=== PATIENT | female | born 1935 | race Two or more races ===

== ENCOUNTER 2016-11-02 10:35 | Inpatient (IN) | payer MEDICARE, OTHER ==
[~2016-11-02] VITALS: Ht 147.3 cm; Wt 51.2 kg
[~2016-11-02 10:35] MED LIST: ATOR40TA68 PO; FURO40TA4 PO; METO50TA16 PO
[2016-11-02] MEDS ORDERED: HYDROmorphONE 1 MG/ML SYG IV STA (10:45)
[2016-11-02] MEDS ORDERED: ONDANSETRON 4 MG INJ IV STA ×2 (10:45→14:08)
[2016-11-02] MEDS ORDERED: SOD CHLORIDE 0.9% 1,000 ML IV STA (10:45)
[2016-11-02] MEDS ORDERED: ACETAMINOPHEN 325 MG TAB PO PRN (11:00)
[2016-11-02] MEDS ORDERED: ONDANSETRON 4 MG INJ IV PRN (11:00)
[2016-11-02 11:52] LABS: ADD SCAN DIFF NO
[2016-11-02 11:53] LABS: BASOPHILS % 0.3 % (0.0-2.0); EOSINOPHILS # 0.4 10^3/ul (0.0-0.5); EOSINOPHILS % 5.1 % (0.0-7.0); HEMATOCRIT 38.2 % (37.0-47.0); HEMOGLOBIN 12.5 g/dl (12.0-16.0); LYMPHOCYTES # 1.8 10^3/ul (0.8-2.9); MEAN CORPUSCULAR HEMOGLOBIN 31.5 pg (29.0-33.0); MEAN CORPUSCULAR HGB CONC 32.7 g/dl (32.0-37.0); MEAN CORPUSCULAR VOLUME 96.2 fl (82.0-101.0); MEAN PLATELET VOLUME 9.3 fl (7.4-10.4); MONOCYTE # 0.7 10^3/ul (0.3-0.9); MONOCYTES % 9.7 % (0.0-11.0); NEUTROPHIL # 4.6 10^3/ul (1.6-7.5); NEUTROPHILS % 60.5 % (39.0-77.0); PLATELET COUNT 270 10^3/UL (140-415); RED BLOOD COUNT 3.97 10^6/ul (4.20-5.40); RED CELL DISTRIBUTION WIDTH 12.9 % (11.5-14.5); WHITE BLOOD COUNT 7.7 10^3/ul (4.8-10.8)
[2016-11-02 12:01] LABS: ALBUMIN 3.9 g/dl (3.3-4.9)
[2016-11-02 12:02] LABS: CHLORIDE 99 mmol/L (97-110); POTASSIUM 4.3 mmol/L (3.5-5.1); SODIUM 136 mmol/L (135-144)
[2016-11-02 12:04] LABS: ANION GAP 12 (8-16); ASPARTATE AMINO TRANSFERASE 26 IU/L (15-46); BILIRUBIN,INDIRECT 0.4 mg/dl (0-1.1); BILIRUBIN,TOTAL 0.4 mg/dl (0.2-1.3); CARBON DIOXIDE 29 mmol/L (21-31); CREATININE 0.83 mg/dl (0.44-1.00)
[2016-11-02 12:05] LABS: ALANINE AMINOTRANSFERASE 27 IU/L (13-69); ALKALINE PHOSPHATASE 113 IU/L (42-121); BLOOD UREA NITROGEN 27 mg/dl (7-20); CALCIUM 9.4 mg/dl (8.4-10.2); GLUCOSE 122 mg/dl (70-220); TOTAL PROTEIN 6.9 g/dl (6.1-8.1)
[2016-11-02 12:20] LABS: TROPONIN-I < 0.010 ng/ml (0.00-0.12)
[2016-11-02 12:21] LABS: INR 0.97; PROTIME 12.9 Sec (12.2-14.2)
[2016-11-02 12:26] LABS: PARTIAL THROMBOPLASTIN TIME 29.7 Sec (25.0-35.0)
[2016-11-02] MEDS ORDERED: HYDROmorphONE 2 MG/ML SYG IV STA (12:37)
--- NOTE | 2016-11-02 12:42 | RADRPT ---
PROCEDURE: XR Chest. CLINICAL INDICATION: Shortness of breath. TECHNIQUE: Single frontal view. COMPARISON: 10/11/2016. FINDINGS: There is marked improvement in the aeration of the lungs. There is mild left basilar atelectasis. The lungs are otherwise clear. The heart size is normal. There is no pleural effusion. There is no pneumothorax. IMPRESSION: 1. Marked improvement in the aeration of the lungs with only mild left basilar atelectasis remainin g. 2. Otherwise normal chest x-ray. RPTAT: QQ .Flaco Denny MD, MD Date Time Electronically viewed and signed by .Flaco Denny MD, MD on 11/02/2016 11:58 .R/
--- NOTE | 2016-11-02 13:08 | RADRPT ---
PROCEDURE: CT Abdomen and Pelvis without contrast. CLINICAL INDICATION: Severe abdominal pain. Possible upper GI bleed. TECHNIQUE: Multiple contiguous axial CT images of the abdomen and pelvis were obtained without the administration of intravenous contrast. Coronal and sagittal reconstructions were also performed. CTDIvol (mGy): 6.62; Total Exam DLP (mGy-cm): 309.56. One or more of the following dose reduction techniques were utilized: - Automated exposure control. - Adjustment of the mA and/or kV according to patient size. - Use of iterative reconstruction technique. COMPARISON: CT lumbar spine 07/27/2016. CTA chest 07/27/2016. FINDINGS: Limited imaging of the lower thorax demonstrates cardiomegaly. The massive hiatal hernia seen on amy or examination is no longer present. Irregular soft tissue is seen within the surgical bed and may reflect postoperative change. This is limited evaluation given the lack of intravenous and oral cont rast. Mild atelectatic changes are seen within the lung bases. There is an irregular nodular densi ty measuring approximately 13 mm within the right middle lobe along the major fissure. This is not visible on prior examination and likely obscured by surrounding atelectatic change. The liver and spleen are homogeneous in density. Cholelithiasis is present. The pancreas and adren al glands are unremarkable. The kidneys are symmetric in size. There are no nephroureteral stones. There is no hydronephrosis o r abnormal perinephric inflammation. The abdominal aorta is normal in caliber. Atherosclerotic calcification is present. There is no per iaortic / retroperitoneal lymphadenopathy. The stomach is partially distended with gastric material. Mild nonspecific diffuse symmetric gastri c wall thickening is observed. There is no barbi gastric abnormality. The small intestines are unre markable. Diverticulosis of the distal colon is present. There is no ascites. The bladder, uterus and adnexa are unremarkable. There is no free pelvic fluid. There is no pelvic sidewall or inguinal lymphadenopathy. There is a fat-containing left inguinal hernia. There is a lo bular presacral mass containing macroscopic fat and strands of soft tissue attenuation. There are n o underlying bony changes of the sacrum. The sacral foramen are unremarkable. Spinal curvature with severe multilevel degenerative disk disease is present and grossly unchanged. Body wall soft tissues are unremarkable. IMPRESSION: The massive hiatal hernia seen on prior examination is no longer present which may be a result of agrawal rgical repair. Irregular soft tissue is seen within the surgical bed and may reflect postoperative c hange. However, this is limited in evaluation due to the lack of intravenous and oral contrast. Con rrts follow up and further characterization with contrast enhanced cross-sectional imaging. Irregular nodular density of the right middle lobe along the major fissure. Follow-up may be obtain ed in 3 months. Fat containing left inguinal hernia. Lobular circumscribed fat-containing presacral mass. There are no underlying bony changes / remodel ling of the sacrum. 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 Also included in the differential or mesenchymal and neurogenic tumors as well as extramedullary hematopoiesis. Imag ing follow-up may be obtained if there are no associated symptoms. Diverticulosis. No evidence of acute diverticulitis. Cholelithiasis. Spinal curvature with severe multilevel degenerative disk disease, unchanged. RPTAT: HLST .Zulma Garcia MD, MD Date Time Electronically viewed and signed by .Zulma Garcia MD, MD on 11/02/2016 13:08 .T/
--- NOTE | 2016-11-02 13:46 | ERA ---
ER Documentation Chief Complaint Date/Time DATE: 11/02/16 TIME: 13:44 Chief Complaint BIB BLS FOR EVAL OF ABD PAIN. FROM SNF. HPI Patient is an 81-year-old female with hypertension and back pain who presents with abdominal pain. She has left lower quadrant abdominal pain which he said is from a "hernia". She said the hernia that she has had for a long time but that over the past 2 days it has been "really bad". The pain comes and goes and is sharp in nature. Today there was blood on her toilet paper. She was brought in by ambulance. She had [place] at 830 this morning and then Dilaudid as well. Her primary doctors Dr. Hoffman. Dr. Vaughan did a recent hiatal hernia surgery. ROS All systems reviewed and are negative except as per history of present illness. Medications Home Meds Reported Medications Atorvastatin* (Atorvastatin*) 40 Mg Tablet, 40 MG PO QHS, #30 TAB 10/20/16 Metoprolol Succinate* (Toprol XL*) 50 Mg Tab.er.24h, 50 MG PO BID, #30 TAB 10/06/16 Atorvastatin* (Atorvastatin*) 40 Mg Tablet, 40 MG PO QHS, #30 TAB 07/27/16 Furosemide* (Furosemide*) 40 Mg Tablet, 40 MG PO DAILY, TAB 07/27/16 Allergies Allergies: Coded Allergies: No Known Allergy (Verified , 07/27/16) PMhx/Soc History of Surgery: Yes (RT EYE SX, JENNIFER FEET SX, RT KNEE SX,CERVICAL CA X2 SX, HERNIA SX, HEMORRHOID) Anesthesia Reaction: No Hx Neurological Disorder: No Hx Respiratory Disorders: No Hx Cardiac Disorders: Yes (HEART MURMUR ) Hx Psychiatric Problems: Yes (DEPRESSION) Hx Miscellaneous Medical Probl: Yes (HTN, dyslipidemia, chronic pain, T4-T5 compression fx in 2014) Hx Alcohol Use: No Hx Substance Use: No Hx Tobacco Use: No FmHx Family History: No diabetes Physical Exam Vitals Vital Signs Date Time Temp Pulse Resp B/P Pulse Ox O2 Delivery O2 Flow Rate FiO2 11/02/16 11:14 98.6 72 19 154/79 99 Physical Exam Const: Moderate distress secondary to pain Head: Atraumatic Eyes: Normal Conjunctiva ENT: Normal External Ears, Nose and Mouth. Neck: Full range of motion..~ No meningismus. Resp: Clear to auscultation bilaterally Cardio: Regular rate and rhythm, no murmurs Abd: Soft, diffuse tenderness to palpation with left lower quadrant hernia palpated without signs of skin color changes Skin: No petechiae or rashes Back: No midline or flank tenderness Ext: No cyanosis, or edema Neur: Awake and alert Psych: Normal Mood and Affect Result Diagram: 11/02/16 1130 11/02/16 1130 Results 24 hrs Laboratory Tests Test 11/02/16 11:30 White Blood Count 7.710^3/ul Red Blood Count 3.9710^6/ul Hemoglobin 12.5g/dl Hematocrit 38.2% Mean Corpuscular Volume 96.2fl Mean Corpuscular Hemoglobin 31.5pg Mean Corpuscular Hemoglobin Concent 32.7g/dl Red Cell Distribution Width 12.9% Platelet Count 19165^3/UL Mean Platelet Volume 9.3fl Neutrophils % 60.5% Lymphocytes % 24.0% Monocytes % 9.7% Eosinophils % 5.1% Basophils % 0.3% Nucleated Red Blood Cells % 0.0/100WBC Neutrophils # 4.610^3/ul Lymphocytes # 1.810^3/ul Monocytes # 0.710^3/ul Eosinophils # 0.410^3/ul Basophils # 0.010^3/ul Nucleated Red Blood Cells # 0.010^3/ul Prothrombin Time 12.9Sec Prothrombin Time Ratio 1.0 INR International Normalized Ratio 0.97 Activated Partial Thromboplast Time 29.7Sec Sodium Level 136mmol/L Potassium Level 4.3mmol/L Chloride Level 99mmol/L Carbon Dioxide Level 29mmol/L Anion Gap 12 Blood Urea Nitrogen 27mg/dl Creatinine 0.83mg/dl Glucose Level 122mg/dl Calcium Level 9.4mg/dl Total Bilirubin 0.4mg/dl Direct Bilirubin 0.00mg/dl Indirect Bilirubin 0.4mg/dl Aspartate Amino Transf (AST/SGOT) 26IU/L Alanine Aminotransferase (ALT/SGPT) 27IU/L Alkaline Phosphatase 113IU/L Troponin I < 0.010ng/ml Total Protein 6.9g/dl Albumin 3.9g/dl Globulin 3.00g/dl Albumin/Globulin Ratio 1.30 Current Medications Medications (Trade) Dose Ordered Sig/Krunal Route PRN Reason Start Time Stop Time Status Last Admin Dose Admin Sodium Chloride (NS) 1,000 ml @ 1,000 mls/hr Q1H STAT IV 11/02/16 10:45 11/02/16 11:44 DC Hydromorphone HCl (Dilaudid) 1 mg ONCE STAT IV 11/02/16 10:45 11/02/16 10:46 DC Ondansetron HCl (Zofran Inj) 4 mg ONCE STAT IV 11/02/16 10:45 11/02/16 10:46 DC Ondansetron HCl (Zofran Inj) 4 mg BRIDGE ORDER PRN IV NAUSEA AND/OR VOMITING 11/02/16 11:00 11/03/16 10:59 Acetaminophen (Tylenol Tab) 650 mg ER BRIDGE PRN PO MILD PAIN/FEVER 11/02/16 11:00 11/03/16 10:59 Hydromorphone HCl (Dilaudid) 2 mg ONCE STAT IV 11/02/16 12:37 11/02/16 12:38 DC Procedures/MDM PROCEDURE: CT Abdomen and Pelvis without contrast. CLINICAL INDICATION: Severe abdominal pain. Possible upper GI bleed. TECHNIQUE: Multiple contiguous axial CT images of the abdomen and pelvis were obtained without the administration of intravenous contrast. Coronal and sagittal reconstructions were also performed. CTDIvol (mGy): 6.62; Total Exam DLP (mGy-cm): 309.56. One or more of the following dose reduction techniques were utilized: - Automated exposure control. - Adjustment of the mA and/or kV according to patient size. - Use of iterative reconstruction technique. COMPARISON: CT lumbar spine 07/27/2016. CTA chest 07/27/2016. FINDINGS: Limited imaging of the lower thorax demonstrates cardiomegaly. The massive hiatal hernia seen on prior examination is no longer present. Irregular soft tissue is seen within the surgical bed and may reflect postoperative change. This is limited evaluation given the lack of intravenous and oral contrast. Mild atelectatic changes are seen within the lung bases. There is an irregular nodular density measuring approximately 13 mm within the right middle lobe along the major fissure. This is not visible on prior examination and likely obscured by surrounding atelectatic change. The liver and spleen are homogeneous in density. Cholelithiasis is present. The pancreas and adrenal glands are unremarkable. The kidneys are symmetric in size. There are no nephroureteral stones. There is no hydronephrosis or abnormal perinephric inflammation. The abdominal aorta is normal in caliber. Atherosclerotic calcification is present. There is no periaortic / retroperitoneal lymphadenopathy. The stomach is partially distended with gastric material. Mild nonspecific diffuse symmetric gastric wall thickening is observed. There is no barbi gastric abnormality. The small intestines are unremarkable. Diverticulosis of the distal colon is present. There is no ascites. The bladder, uterus and adnexa are unremarkable. There is no free pelvic fluid. There is no pelvic sidewall or inguinal lymphadenopathy. There is a fat- containing left inguinal hernia. There is a lobular presacral mass containing macroscopic fat and strands of soft tissue attenuation. There are no underlying bony changes of the sacrum. The sacral foramen are unremarkable. Spinal curvature with severe multilevel degenerative disk disease is present and grossly unchanged. Body wall soft tissues are unremarkable. IMPRESSION: The massive hiatal hernia seen on prior examination is no longer present which may be a result of surgical repair. Irregular soft tissue is seen within the surgical bed and may reflect postoperative change. However, this is limited in evaluation due to the lack of intravenous and oral contrast. Consider follow up and further characterization with contrast enhanced cross-sectional imaging. Irregular nodular density of the right middle lobe along the major fissure. Follow-up may be obtained in 3 months. Fat containing left inguinal hernia. Lobular circumscribed fat-containing presacral mass. There are no underlying bony changes / remodelling of the sacrum. 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 Also included in the differential or mesenchymal and neurogenic tumors as well as extramedullary hematopoiesis. Imaging follow- up may be obtained if there are no associated symptoms. Diverticulosis. No evidence of acute diverticulitis. Cholelithiasis. Spinal curvature with severe multilevel degenerative disk disease, unchanged. RPTAT: HLST .Zulma Garcia MD, Date Time Electronically viewed and signed by .Zulma Garcia MD, on 11/02/2016 13:08 Chest x-ray shows no pneumonia or pneumothorax per radiology. EKG read by me: Rate/Rhythm: Regular rate and rhythm at a rate of 65 Intervals: Normal Impression: No evidence of ischemia or arrhythmia Patient is an 81-year-old female with chronic pain who presents with abdominal pain. The patient has a hernia but no signs of obstruction on the CAT scan. It is a fat-containing hernia. The patient will need admission for Dr. Hoffman. The patient will be admitted to medical surgical bed. The patient has intractable pain which has failed outpatient treatment. The patient will be admitted to the care of Dr. Hoffman and I did speak with Dr. Vaughan for consultation. Departure Diagnosis: Primary Impression: Hernia Additional Impression: Abdominal pain Qualified Code: R10.9 - Abdominal pain, unspecified location Condition: MAURY Gamboa MD Nov 02, 2016 13:46
[2016-11-02] MEDS ORDERED: ACET-2047 PO (13:52)
[2016-11-02] MEDS ORDERED: ASPI-664 PO (13:53)
[2016-11-02] MEDS ORDERED: SPIR25TA PO (13:53)
[2016-11-02] MEDS ORDERED: CITA20TA11 PO (13:54)
[2016-11-02] MEDS ORDERED: CLON-379 PO (13:56)
[2016-11-02] MEDS ORDERED: DIAZ5TAB4 PO (13:57)
[2016-11-02] MEDS ORDERED: LIDO700A6 TP ×2 (13:58→14:01)
[2016-11-02] MEDS ORDERED: GABA-526 PO (13:58)
[2016-11-02] MEDS ORDERED: ALEN70TA30 PO (13:59)
[2016-11-02] MEDS ORDERED: HYDR4TAB18 PO (14:00)
[2016-11-02] MEDS ORDERED: LOSA25TA5 PO (14:02)
[2016-11-02 14:03] VITALS: TEMP 98.6
[2016-11-02] MEDS ORDERED: MULTI PO (14:03)
[2016-11-02] MEDS ORDERED: HYDR-906 PO ×2 (14:03→14:05)
[2016-11-02] MEDS ORDERED: LISI-313 PO (14:07)
[2016-11-02] MEDS ORDERED: SULF500T5 PO (14:08)
[2016-11-02] MEDS ORDERED: PROT946L PO (14:09)
[2016-11-02] MEDS ORDERED: POTA-57 PO (14:10)
--- NOTE | 2016-11-02 15:32 | HP ---
DATE OF ADMISSION: 11/02/2016 CHIEF COMPLAINT: Intractable abdominal pain not relieved by p.o. medication. HISTORY OF PRESENT ILLNESS: The patient is an 81-year-old female known to me from previous admissio n. The patient was admitted at the beginning of September of this year and underwent laparoscopic herni a repair and Atul fundoplication for big upper paraesophageal hernia. The patient also with chron ic low back pain with history of cervical and thoracic compression fracture. The patient is on Norc o and Dilaudid p.o. at home. The patient continued to have pain and also developed acute decompensa carolyn diastolic congestive heart failure; however, patient was discharged in stable condition and was recuperating at longterm facility. However, the patient was complaining of intractable left lower quadrant abdominal pain. The patient also had history of hernia. The patient stated that her pain was sharp in nature and was not relieved by p.o. medication. The patient had [place] and p.o. D ilaudid. The patient presented to the emergency room and underwent CT of the abdomen and pelvis. P atient underwent a CT scan of the abdomen which revealed a hernia, but no signs of obstruction. The patient was given IV Dilaudid with some improvement in symptoms. The patient will be admitted for further evaluation and management. PAST MEDICAL HISTORY: Positive for hypertension, dyslipidemia, chronic lower back pain, congestive heart failure. PAST SURGICAL HISTORY: Patient is status post surgery in the neck, status post colonoscopy and stat us post laparoscopic hernia repair and Taul fundoplication in [place] [address] Vaughan. ALLERGIES: NO KNOWN ALLERGIES. HOME MEDICATIONS: Include: 1. Atorvastatin. 2. Metoprolol. 3. Lasix. REVIEW OF SYSTEMS: A 12-point review of systems is negative unless what mentioned in the HPI. The patient denies any fever, denies chills, denies vomiting, diarrhea and denies chest pain, denies nathaniel rtness of breath. PHYSICAL ASSESSMENT: GENERAL: Well-developed, well-nourished fragile elderly female currently is awake, alert. VITAL SIGNS: Temperature is 98.6, pulse is 61, blood pressure is 100/67, respiratory rate 18, oxyge n saturation 99% on 3 liters nasal cannula. HEENT: Head is atraumatic, normocephalic. Pupils are equal, round, reactive to light and accommoda tion. Oral mucosa is pink and moist. NECK: Supple. There is no cervical lymphadenopathy, no thyromegaly. CHEST: Lungs clear bilaterally. There is no rhonchi, wheezes, rales noted. CARDIOVASCULAR: Normal S1, S2. No murmurs, gallops, clicks, rubs noted. ABDOMEN: Soft. Patient has left lower quadrant tenderness and diffuse tenderness on palpation. Th e patient's left lower quadrant hernia. Bowel sounds present. There is no guarding, no rebound ten derness. EXTREMITIES: No edema, clubbing, cyanosis. Pulses equal bilaterally 2+. SKIN: There is no rash, petechiae noted. NEUROLOGIC: Patient is awake, alert and oriented x4. No focal deficits noted. Motor strength 5/5 in all extremities. LABORATORY DATA: On admission, CBC: White blood cells 7.7, hemoglobin 12.5, hematocrit 38.2, plate lets 270. Chemistry: Sodium 136, potassium 4.3, chloride 99, carbon dioxide 29, anion gap 12, BUN is 27, creatinine 0.83, glucose 122. AST is 26, ALT is 27, alkaline phosphate is 115, troponin less than 0.01. ASSESSMENT AND PLAN: 1. Intractable abdominal pain. We are going to admit patient. Continue Dilaudid p.r.n. for pain an d Zofran p.r.n. for nausea. Dr. Vaughan will be following patient in general surgery consultation. 2. Diastolic congestive heart failure. Continue patient on p.o. Lasix, monitor electrolytes. 3. Hypertension. Continue metoprolol. 4. We will continue Protonix for peptic ulcer disease prophylaxis and Lovenox for deep venous throm bosis prophylaxis. Further recommendations based on clinical course. Plan of care discussed with Javan Hoffman. Dictated By: ALEXIS VAZQUEZ SUPERVISOR [employer] for VALENTÍN HOFFMAN MD SR/NTS Conf#: [id number] DID#: [id number]
[2016-11-02 16:18] VITALS: BP 111/54; RESP 18
[2016-11-02] MEDS ORDERED: HYDROmorphONE 4 MG/ML SYG IV PRN (16:30)
[2016-11-02] MEDS: D5W-0.45 NACL + KCL 20 MEQ 1,000 ML IV SCH (16:50)
[2016-11-02] MEDS: HYDROmorphONE 1 MG/ML SYG IV PRN ×3 (16:51→23:18)
--- NOTE | 2016-11-02 18:42 | CONS ---
DATE OF ADMISSION: 11/02/2016 DATE OF CONSULTATION: 11/02/2016 REASON FOR CONSULTATION: Abdominal pain. HISTORY OF PRESENT ILLNESS: This is an 81-year-old female who had a recent laparoscopic paraesophag eal hernia repair with Paxton fundoplication. She presents with acute abdominal pain. She has a ch ronic history of chronic back pain with treatment of high-dose opioids. Imaging today on CAT scan s hows a fat-containing left inguinal hernia that appears to be incarcerated. Additionally, there jerome ears to be a presacral mass representing a retroperitoneal myelolipoma. LABORATORY DATA: White blood cell count 7.7, hemoglobin 12.5, hematocrit is 38.2, platelets of 270. Chemistries: Sodium is 136, potassium is 4.3, chloride is 99, carbon dioxide is 29, BUN is 27, cr eatinine 0.8, glucose is 122, calcium is 9.4. Total bilirubin is 0.4, AST and ALT are 26 and 27 res pectively, alkaline phosphatase of 113. PAST MEDICAL HISTORY: Hypertension, dyslipidemia, chronic low back pain with high-dose opioids, con gestive heart failure. PAST SURGICAL HISTORY: Neck surgery and laparoscopic paraesophageal hernia repair with Paxton fundo plication. ALLERGIES: NO KNOWN DRUG ALLERGIES. HOME MEDICATIONS: 1. Atorvastatin. 2. Metoprolol. 3. Lasix. REVIEW OF SYSTEMS: A 12-point review of systems negative unless otherwise mentioned in the HPI. PHYSICAL EXAMINATION: VITAL SIGNS: Temperature is 98.6, pulse is 64, respiratory rate is 18, blood pressure is 111/54, pu lse oximetry is 95. GENERAL: Well-developed, appropriately aged elderly female. HEENT: Atraumatic, normocephalic head. PERRLA. NECK: Supple, midline. CHEST: Clear to auscultation. CARDIOVASCULAR: Normal S1, S2. ABDOMEN: Soft. Focal left lower quadrant tenderness with a left inguinal bulge. EXTREMITIES: No edema. ASSESSMENT AND PLAN: An 81-year-old female with recent complicated laparoscopic paraesophageal nelson ia repair with now an incarcerated left inguinal hernia. This was reduced at bedside with constant soft manual compression. Plan is to keep her n.p.o. after midnight and will plan on operative repai r tomorrow or the next day. Dictated By: JONAS LEE MD SB/NTS Conf#: [id number] [facility]#: [id number]
[2016-11-02 20:00] VITALS: BP 107/57; PULSE 62; RESP 19; Ht 147.3 cm; Wt 51.2 kg
[2016-11-02 20:54] VITALS: BP 107/57; RESP 19
[2016-11-02] MEDS: ATORVASTATIN 40 MG TAB PO SCH (23:19)
[2016-11-02] MEDS: METOPROLOL (XL) 50 MG TAB PO SCH (23:20)
[2016-11-03] VITALS (13 sets, daily range): BP systolic 123–163; BP diastolic 64–76; PULSE 72–94; RESP 16–26
[2016-11-03] MEDS: HYDROmorphONE 1 MG/ML SYG IV PRN ×4 (04:26→21:20)
[2016-11-03 05:19] LABS: ADD SCAN DIFF NO
[2016-11-03 05:24] LABS: BASOPHILS % 0.3 % (0.0-2.0); EOSINOPHILS # 0.4 10^3/ul (0.0-0.5); EOSINOPHILS % 5.9 % (0.0-7.0); HEMATOCRIT 33.9 % (37.0-47.0); HEMOGLOBIN 10.8 g/dl (12.0-16.0); LYMPHOCYTES # 1.2 10^3/ul (0.8-2.9); LYMPHOCYTES % 18.9 % (15.0-51.0); MEAN CORPUSCULAR HEMOGLOBIN 31.5 pg (29.0-33.0); MEAN CORPUSCULAR HGB CONC 31.9 g/dl (32.0-37.0); MEAN CORPUSCULAR VOLUME 98.8 fl (82.0-101.0); MEAN PLATELET VOLUME 9.6 fl (7.4-10.4); MONOCYTE # 0.8 10^3/ul (0.3-0.9); MONOCYTES % 12.2 % (0.0-11.0); NEUTROPHIL # 4.1 10^3/ul (1.6-7.5); NEUTROPHILS % 62.2 % (39.0-77.0); PLATELET COUNT 216 10^3/UL (140-415); RED BLOOD COUNT 3.43 10^6/ul (4.20-5.40); RED CELL DISTRIBUTION WIDTH 13.1 % (11.5-14.5); WHITE BLOOD COUNT 6.6 10^3/ul (4.8-10.8)
[2016-11-03 06:04] LABS: POTASSIUM 4.2 mmol/L (3.5-5.1)
[2016-11-03 06:07] LABS: CREATININE 0.79 mg/dl (0.44-1.00)
[2016-11-03 06:08] LABS: CALCIUM 8.7 mg/dl (8.4-10.2)
[2016-11-03] MEDS: FUROSEMIDE 20 MG TAB PO SCH (08:27)
[2016-11-03] MEDS: METOPROLOL (XL) 50 MG TAB PO SCH ×2 (08:27→21:18)
[2016-11-03] MEDS ORDERED: FUROSEMIDE 40 MG TAB PO SCH (09:00)
[2016-11-03] MEDS ORDERED: BUPIVACAINE 0.25% (MPF) 30 ML INJ ONE (09:36)
[2016-11-03] MEDS ORDERED: POLYMYXIN/BACITRACIN 1L IRRIG ONE (09:36)
[2016-11-03] MEDS ORDERED: ONDANSETRON 4 MG INJ IV PRN (11:30)
[2016-11-03] MEDS ORDERED: MIDAZOLAM 1 MG/ML 2 ML INJ IV PRN (11:30)
[2016-11-03] MEDS ORDERED: hydrALAzine 20 MG INJ IV PRN (11:30)
[2016-11-03] MEDS ORDERED: MEPERIDINE 25 MG INJ IV PRN (11:30)
[2016-11-03] MEDS ORDERED: morphine (1 MG/ML) 10ML SYRINGE IV PRN ×2 (11:30)
[2016-11-03] MEDS ORDERED: LABETALOL HCL 20MG INJ IV PRN (11:30)
[2016-11-03] MEDS ORDERED: DIPHENHYDRAMINE 50 MG INJ IV PRN (11:30)
[2016-11-03] MEDS ORDERED: EPHEDrine SULFATE 50 MG/5 ML SYG IV PRN (11:30)
[2016-11-03] MEDS ORDERED: METOCLOPRAMIDE 10 MG INJ IV PRN (11:30)
[2016-11-03] MEDS ORDERED: FENTAnyl 50 MCG/ML VIAL IV PRN ×2 (11:30)
[2016-11-03] MEDS ORDERED: SUCCINYLCHOLINE CHLORIDE 100 MG/5 ML SYG IV ONE (11:35)
[2016-11-03] MEDS ORDERED: MEPERIDINE 100 MG INJ ONE (11:35)
[2016-11-03] MEDS ORDERED: PROPOFOL 20 ML ONE (11:35)
[2016-11-03] MEDS ORDERED: ROCURONIUM 50 MG INJ ONE (11:35)
[2016-11-03] MEDS ORDERED: LIDOCAINE 2% (SDV) 5 ML INJ ONE (11:35)
[2016-11-03] MEDS ORDERED: GLYCOPYRROLATE 0.4 MG INJ ONE (11:35)
[2016-11-03] MEDS ORDERED: NEOSTIGMINE 3 MG/3 ML SYRINGE ONE (11:35)
[2016-11-03] MEDS ORDERED: CEFAZOLIN 1 GM INJ ONE (11:46)
[2016-11-03] MEDS: D5W-0.45 NACL + KCL 20 MEQ 1,000 ML IV SCH (11:48)
[2016-11-03] MEDS ORDERED: ONDANSETRON 4 MG INJ ONE (12:02)
[2016-11-03] MEDS ORDERED: METOCLOPRAMIDE 10 MG INJ ONE (12:02)
[2016-11-03] MEDS ORDERED: EPHEDrine SULFATE 50 MG/5 ML SYG ONE (12:11)
--- NOTE | 2016-11-03 12:16 | PN ---
Date/Time of Note Date/Time of Note DATE: 11/03/16 TIME: 12:11 Assessment/Plan VTE Prophylaxis VTE Prophylaxis Intervention: SCD's Lines/Catheters IV Catheter Type (from Nrs): Peripheral IV Urinary Cath still in place: No Assessment/Plan Chief Complaint/Hosp Course ASSESSMENT AND PLAN: - Incarcerated left inguinal hernia. Patient is taking to OR for hernia repair. Dr. Vaughan is following patient in general surgery consultation. - Intractable abdominal pain in patient with chronic back pain. Continue Dilaudid p.r.n. for pain and Zofran p.r.n. for nausea. Dr. Orellana is asked to see patient in pain management consultation. - Diastolic congestive heart failure. Continue Lasix, monitor electrolytes. - Hypertension. Continue metoprolol. Continue Protonix for peptic ulcer disease prophylaxis and Lovenox for deep venous thrombosis prophylaxis. Further recommendations based on clinical course. Plan of care discussed with Dr. Hoffman. Problems: Subjective 24 Hr Interval Summary Free Text/Dictation Patient is currently in OR for incarcerated hernia repair, no acute events reported prior to surgery. Exam/Review of Systems Vital Signs Vitals Vital Signs Date Time Temp Pulse Resp B/P Pulse Ox O2 Delivery O2 Flow Rate FiO2 11/03/16 10:32 Nasal Cannula 2.0 11/03/16 08:05 98.4 79 19 134/70 94 Intake and Output 11/02/16 11/02/16 11/03/16 15:00 23:00 07:00 Intake Total 10 ml 840 ml Balance 10 ml 840 ml Results Result Diagram: 11/03/16 0445 11/03/16 0445 Results 24 hrs Laboratory Tests Test 11/03/16 04:45 White Blood Count 6.6 Red Blood Count 3.43 L Hemoglobin 10.8 L Hematocrit 33.9 L Mean Corpuscular Volume 98.8 Mean Corpuscular Hemoglobin 31.5 Mean Corpuscular Hemoglobin Concent 31.9 L Red Cell Distribution Width 13.1 Platelet Count 216 Mean Platelet Volume 9.6 Neutrophils % 62.2 Lymphocytes % 18.9 Monocytes % 12.2 H Eosinophils % 5.9 Basophils % 0.3 Nucleated Red Blood Cells % 0.0 Neutrophils # 4.1 Lymphocytes # 1.2 Monocytes # 0.8 Eosinophils # 0.4 Basophils # 0.0 Nucleated Red Blood Cells # 0.0 Sodium Level 135 Potassium Level 4.2 Chloride Level 103 Carbon Dioxide Level 28 Anion Gap 8 Blood Urea Nitrogen 22 H Creatinine 0.79 Glucose Level 131 Calcium Level 8.7 Medications Medications Current Medications Atorvastatin Calcium (Lipitor) 40 mg QHS PO Last administered on 11/02/16 23:19 ; Admin Dose 40 MG; Start 11/02/16 at 21:00 Metoprolol Succinate (Toprol Xl) 50 mg BID PO Last administered on 11/02/16 23: 20; Admin Dose 50 MG; Start 11/02/16 at 21:00 Ondansetron HCl 4 mg 4 mg Q4H PRN IV NAUSEA AND/OR VOMITING; Start 11/02/16 at 16:30 Potassium Chloride/Dextrose/ Sod Cl (D5-1/2ns + KCl 20 Meq) 1,000 ml @ 50 mls/ hr Q20H IV Last administered on 11/02/16 16:50; Admin Dose 50 MLS/HR; Start 11/02/16 at 16:30 Hydromorphone HCl (Dilaudid) 1 mg Q3H PRN IV PAIN Last administered on 08:27; Admin Dose 1 MG; Start 11/02/16 at 19:30 Furosemide (Lasix) 20 mg DAILY PO ; Start 11/03/16 at 09:00 ALEXIS VAZQUEZ Nov 03, 2016 12:16
[2016-11-03] MEDS ORDERED: morphine 2 MG INJ IV PRN (12:30)
[2016-11-03] MEDS ORDERED: HYDROCODONE/APAP (10/325) TAB PO PRN (12:30)
[2016-11-03] MEDS ORDERED: HYDROmorphONE 1 MG/ML SYG IV PRN ×2 (12:30→15:16)
--- NOTE | 2016-11-03 12:56 | OPR ---
DATE OF OPERATION: 11/03/2016 INDICATION: This is an 81-year-old female who presented to the ER with acutely incarcerated direct left inguinal hernia. She requests surgical repair. Risks, alternatives, benefits, and personnel w ere discussed with the patient. The patient expressed understanding and consents to the operation. PREOPERATIVE DIAGNOSIS: Incarcerated left inguinal hernia. POSTOPERATIVE DIAGNOSIS: Incarcerated left inguinal hernia. OPERATION: Open incarcerated left inguinal hernia repair with medium sized Ultrapro hernia system m es. SURGEON: Melissa Vaughan MD SPECIMEN: None. COMPLICATIONS: None. ANESTHESIA: General. DESCRIPTION OF PROCEDURE: The patient was taken to the OR and prepped and draped in the usual ster ile fashion. Surgical timeout was performed. IV antibiotics were given. Left inguinal oblique inc ision was made with a 10 blade. Dissection cautery was carried down to the external oblique fascia which was opened up with a 15 blade. This incision was extended medial inferiorly and lateral super iorly with Metzenbaum scissors. The round ligament was divided. Direct hernia was identified and r educed. This area was bolstered with the disk portion of the Ultrapro hernia system mesh which was secured in place a running 0 Prolene from the pubic tubercle along the shelving edge of the inguinal ligament and superiorly to the internal oblique with interrupted 3-0 Vicryl. [place] mesh was secure d in similar fashion with a running 0 Prolene from the pubic tubercle along the shelving edge of the inguinal ligament and superiorly to the internal oblique with interrupted 3-0 Vicryl. External obl ique fascia was closed with a running 3-0 Vicryl. Perry's was closed with interrupted 3-0 Vicryl. Skin was closed using skin garett. Local anesthesia was injected. Dry dressings were applied. Dictated By: MELISSA BUTLER/ROSA Conf#: [id number] DID#: [id number]
[2016-11-03 13:07] LABS: ADD SCAN DIFF NO
[2016-11-03 13:11] LABS: BASOPHILS % 0.2 % (0.0-2.0); EOSINOPHILS # 0.2 10^3/ul (0.0-0.5); EOSINOPHILS % 2.2 % (0.0-7.0); HEMATOCRIT 36.9 % (37.0-47.0); HEMOGLOBIN 11.3 g/dl (12.0-16.0); LYMPHOCYTES # 1.7 10^3/ul (0.8-2.9); MEAN CORPUSCULAR HEMOGLOBIN 30.5 pg (29.0-33.0); MEAN CORPUSCULAR HGB CONC 30.6 g/dl (32.0-37.0); MEAN CORPUSCULAR VOLUME 99.7 fl (82.0-101.0); MEAN PLATELET VOLUME 9.2 fl (7.4-10.4); MONOCYTE # 0.9 10^3/ul (0.3-0.9); MONOCYTES % 10.8 % (0.0-11.0); NEUTROPHIL # 5.3 10^3/ul (1.6-7.5); NEUTROPHILS % 65.4 % (39.0-77.0); PLATELET COUNT 215 10^3/UL (140-415); RED CELL DISTRIBUTION WIDTH 13.1 % (11.5-14.5); WHITE BLOOD COUNT 8.2 10^3/ul (4.8-10.8)
[2016-11-03 13:20] LABS: ALBUMIN 3.4 g/dl (3.3-4.9)
[2016-11-03 13:21] LABS: POTASSIUM 3.6 mmol/L (3.5-5.1)
[2016-11-03 13:23] LABS: ALBUMIN/GLOBULIN RATIO 1.17; BILIRUBIN,INDIRECT 0.3 mg/dl (0-1.1); BILIRUBIN,TOTAL 0.3 mg/dl (0.2-1.3); CREATININE 0.81 mg/dl (0.44-1.00); TOTAL PROTEIN 6.3 g/dl (6.1-8.1)
[2016-11-03 13:24] LABS: CALCIUM 8.9 mg/dl (8.4-10.2)
[2016-11-03] MEDS: LACTATED RINGER'S 1,000 ML IV SCH (14:15)
--- NOTE | 2016-11-03 14:56 | PN ---
DATE: 11/03/2016 PAIN MEDICINE CONSULTATION This is a pleasant 81-year-old female who is status post open incarcerated left hernia repair with m edium sized Ultrapro Hernia System Mesh today, 11/03/2016. The patient presented to the emergency r oom at [facility] with intractable abdominal discomfort. Most of this information is taken from the patient's medical record, she is postop at this point, but apparently developed acute onse t of abdominal discomfort located in the left lower quadrant. She has a past medical history of "he rnia." I do not have more details than that, but apparently pain was unremitting, sharp and was not alleviated by dose pain medications, including [place] and Dilaudid she has been taking at home for a very prolonged period of time prior to this hospitalization. She came to the emergency room with u nalleviated intractable pain once again, only located in the left lower quadrant. She had no system ic symptoms associated with it. There is no past medical history of opioid abuse. The character of her pain was numbing, not sharp and no radiations. 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 She apparently has been on that medication for a long period of time, d osing as [place] 10/325 every 6 hours as needed, 1 tablet, Dilaudid 4 mg 1 tablet twice a day history . Apparently she has been on this for a prolonged period of time prior to this hospitalization. MEDICATIONS: Please refer to reconciliation sheets. ALLERGIES: NO KNOWN DRUG ALLERGIES. MAJOR MEDICAL PROBLEMS IN THE PAST: Taken from medical records including a history of chronic low b ack pain, congestive heart failure, hypertension, dyslipidemia. SOCIAL HISTORY: Nonsmoker, nondrinker. FAMILY HISTORY: Noncontributory towards this consultation. REVIEW OF SYSTEMS: A 12-point review of systems is unremarkable except which is as per history of p resent illness. PHYSICAL EXAMINATION: GENERAL: Postoperatively, in her bed, she is a well-nourished, well-developed female, somewhat somn olent on examination. VITAL SIGNS: Blood pressure 137/64, pulse is 74 and regular, respirations are 26, temperature 98.7 degrees, 97% saturation on 2 liters FIO2. HEENT: She is normocephalic and atraumatic. Anicteric, acyanotic on examination. Somewhat ashen-a ppearing female. CHEST: Shows bilateral clear breath sounds throughout both lung hannah. COR: S1, S2, without S3, S4, murmur, gallop, rub. Normal rate, normal rhythm. Bilateral carotids are brisk without bruit. ABDOMEN: Grossly benign, scaphoid. No organomegaly grossly on examination. NEUROLOGICAL: She is oriented x3, somewhat slow to answer questions, somewhat somnolent at this elias e. Motor, sensory findings grossly within normal limits. LABORATORY DATA: White blood cell count of 8.2, hemoglobin 11.3, hematocrit 36.9, platelet count of 215,000. Chemistry: Serum sodium 138, potassium 3.6, chloride 100, bicarbonate 27, BUN of 19, cre atinine 0.81, blood sugar 128. ASSESSMENT AND PLAN: This is an 81-year-old female who is TOLERANT TO OPIOIDS, status post 08/02/19 17 this 08/02/2016 open incarcerated left herniorrhaphy, inguinal hernia repair with medium sized Ul trapro hernia system mesh who appears to be stable postoperatively at this time, not taking oral yet . She is tolerant to opioids, having taking 2 short acting opioids for a very prolonged period of t gregory, according to she and her daughter. The character of the pain location of the pain, and medicat ions that alleviate her pain are listed in the history of present illness. At this time, I will the morphine and some of the dosages of hydromorphone and just keep her on Dilaudid 1 mg every 4 hours p.r.n. pain. She does not appear to be in extreme discomfort at this time, once again not moaning, not groaning on examination. For now, we will withhold any oral pain medications, so we will discon tinue [place]. I do suspect she was having some discomfort tomorrow when and if she begins to ambulat e. I will adjust her dosages of her pain control medications at that time. Hopefully, with using p rimarily just other forms of pain management other than the use of opioids, although this lady is to lerant to pain medications and she will need something to control her discomfort. Dictated By: LUMA ARROYO MD, LP/ROSA Conf#: [id number] [facility]#: [id number]
[2016-11-03] MEDS: ONDANSETRON 4 MG INJ IV PRN (15:25)
[2016-11-03] MEDS: CEFAZOLIN 2 GM/50 ML (PMX) 50 ML IVPB SCH (20:28)
[2016-11-03] MEDS: ATORVASTATIN 40 MG TAB PO SCH (21:18)
[2016-11-04] MEDS: HYDROmorphONE 1 MG/ML SYG IV PRN ×7 (00:47→20:59)
[2016-11-04] MEDS: DIAZEPAM 5 MG TAB PO PRN ×2 (01:51→20:58)
[2016-11-04] MEDS: CEFAZOLIN 2 GM/50 ML (PMX) 50 ML IVPB SCH ×2 (05:11→11:26)
[2016-11-04] MEDS: LACTATED RINGER'S 1,000 ML IV SCH ×3 (05:11→17:43)
[2016-11-04] MEDS: ONDANSETRON 4 MG INJ IV PRN ×2 (05:31→11:21)
[2016-11-04 05:44] LABS: ADD SCAN DIFF NO
[2016-11-04 05:54] LABS: BASOPHILS % 0.3 % (0.0-2.0); EOSINOPHILS # 0.1 10^3/ul (0.0-0.5); EOSINOPHILS % 1.3 % (0.0-7.0); HEMATOCRIT 32.5 % (37.0-47.0); HEMOGLOBIN 10.6 g/dl (12.0-16.0); LYMPHOCYTES # 1.3 10^3/ul (0.8-2.9); LYMPHOCYTES % 16.4 % (15.0-51.0); MEAN CORPUSCULAR HEMOGLOBIN 31.7 pg (29.0-33.0); MEAN CORPUSCULAR HGB CONC 32.6 g/dl (32.0-37.0); MEAN CORPUSCULAR VOLUME 97.3 fl (82.0-101.0); MEAN PLATELET VOLUME 9.4 fl (7.4-10.4); MONOCYTE # 0.7 10^3/ul (0.3-0.9); MONOCYTES % 9.7 % (0.0-11.0); NEUTROPHIL # 5.5 10^3/ul (1.6-7.5); NEUTROPHILS % 71.9 % (39.0-77.0); PLATELET COUNT 208 10^3/UL (140-415); RED BLOOD COUNT 3.34 10^6/ul (4.20-5.40); RED CELL DISTRIBUTION WIDTH 12.8 % (11.5-14.5); WHITE BLOOD COUNT 7.6 10^3/ul (4.8-10.8)
[2016-11-04 07:16] LABS: POTASSIUM 3.4 mmol/L (3.5-5.1)
[2016-11-04 07:19] LABS: CREATININE 0.67 mg/dl (0.44-1.00)
[2016-11-04 07:20] LABS: CALCIUM 8.6 mg/dl (8.4-10.2)
[2016-11-04] MEDS: FUROSEMIDE 20 MG TAB PO SCH (08:07)
[2016-11-04] MEDS: METOPROLOL (XL) 50 MG TAB PO SCH ×2 (08:07→20:59)
[2016-11-04 08:27] VITALS: BP 143/66; RESP 20
--- NOTE | 2016-11-04 13:23 | PN ---
DATE: 11/04/2016 PAIN MANAGEMENT PROGRESS NOTE SUBJECTIVE: She is doing better today. States she has discomfort, but she is not in extremis at al l. Pain location is still in the left lower quadrant. Denies nausea, vomiting associated with the current pain medications including IV Dilaudid 1 mg q. 6 hours p.r.n. It seems to be controlling he r pain very well. She has no other systemic symptoms at this time. No nausea, vomiting, fevers, ch ills, dizziness, diplopia, disorientation. She is taking p.o. liquids at this time. Pain was 9/10 before, it is 3/10 now. OBJECTIVE: VITAL SIGNS: Blood pressure 143/66, pulse of 83 and regular, respirations of 20, temperature of 98. 8 degrees, 91% saturation on 2 liters. HEENT: She is normocephalic and atraumatic. Anicteric, acyanotic on examination. CHEST: Shows bilateral clear breath sounds throughout both lung hannah. NEUROLOGICAL: She is oriented x3. Cranial nerves II through XII are grossly intact. Motor and sen zonia findings grossly within normal limits. LABORATORY DATA: White blood cell count of 7.6, hemoglobin 10.6, hematocrit 32.5, MCV 97.3, platele t count of 208,000. Chemistry: Serum sodium 137, potassium 3.4, chloride 100, bicarbonate 26, BUN 14, creatinine 0.67, blood sugar 148. ASSESSMENT AND PLAN: The patient is status post open incarcerated left inguinal hernia repair with medium-sized Ultrapro hernia system mesh. Postop pain is controlled at this time. History of chron ic pain prior to hospitalization, currently controlled with current regimen. When she is taking p.o . well, I will switch her back to her outpatient pain control medication. Dictated By: LUMA ARROYO MD, LP/ROSA Conf#: [id number] DID#: [id number]
[2016-11-04] MEDS ORDERED: POTASSIUM CHLORIDE (SR) 20 MEQ TAB PO STA (17:28)
--- NOTE | 2016-11-04 17:32 | PN ---
Date/Time of Note Date/Time of Note DATE: 11/04/16 TIME: 17:31 Assessment/Plan VTE Prophylaxis VTE Prophylaxis Intervention: other Lines/Catheters IV Catheter Type (from Nrs): Peripheral IV Urinary Cath still in place: No Assessment/Plan Assessment/Plan - Incarcerated left inguinal hernia. Patient is taking to OR for hernia repair. Dr. Vaughan is following patient in general surgery consultation. - Intractable abdominal pain in patient with chronic back pain. Continue Dilaudid p.r.n. for pain and Zofran p.r.n. for nausea. Dr. Orellana is asked to see patient in pain management consultation. - Diastolic congestive heart failure. Continue Lasix, monitor electrolytes. - Hypertension. Continue metoprolol. Continue Protonix for peptic ulcer disease prophylaxis and Lovenox for deep venous thrombosis prophylaxis. Further recommendations based on clinical course. Plan of care discussed with Dr. Hoffman. Exam/Review of Systems Vital Signs Vitals Vital Signs Date Time Temp Pulse Resp B/P Pulse Ox O2 Delivery O2 Flow Rate FiO2 11/04/16 08:27 98.8 83 20 143/66 91 11/03/16 14:00 Nasal Cannula 2.0 Intake and Output 11/03/16 11/03/16 11/04/16 15:00 23:00 07:00 Intake Total 450 ml 1390 ml 1030 ml Output Total 5 ml Balance 445 ml 1390 ml 1030 ml Exam Psych: nl mood/affect Eyes: EOMI ENMT: nl external ears & nose Neck: non-tender Respiratory: clear to auscultation Cardiovascular: nl pulses Gastrointestinal: non-tender, soft Musculoskeletal: nl extremities to inspection Results Result Diagram: 11/04/16 0523 11/04/16 0523 Results 24 hrs Laboratory Tests Test 11/04/16 05:23 White Blood Count 7.6 Red Blood Count 3.34 L Hemoglobin 10.6 L Hematocrit 32.5 L Mean Corpuscular Volume 97.3 Mean Corpuscular Hemoglobin 31.7 Mean Corpuscular Hemoglobin Concent 32.6 Red Cell Distribution Width 12.8 Platelet Count 208 Mean Platelet Volume 9.4 Neutrophils % 71.9 Lymphocytes % 16.4 Monocytes % 9.7 Eosinophils % 1.3 Basophils % 0.3 Nucleated Red Blood Cells % 0.0 Neutrophils # 5.5 Lymphocytes # 1.3 Monocytes # 0.7 Eosinophils # 0.1 Basophils # 0.0 Nucleated Red Blood Cells # 0.0 Sodium Level 137 Potassium Level 3.4 L Chloride Level 100 Carbon Dioxide Level 26 Anion Gap 14 Blood Urea Nitrogen 14 Creatinine 0.67 Glucose Level 148 Calcium Level 8.6 Medications Medications Current Medications Atorvastatin Calcium (Lipitor) 40 mg QHS PO Last administered on 11/03/16 21:18 ; Admin Dose 40 MG; Start 11/02/16 at 21:00 Metoprolol Succinate (Toprol Xl) 50 mg BID PO Last administered on 11/04/16 08: 07; Admin Dose 50 MG; Start 11/02/16 at 21:00 Ondansetron HCl (Zofran Inj) 4 mg Q4H PRN IV NAUSEA AND/OR VOMITING Last administered on 11/04/16 11:21; Admin Dose 4 MG; Start 11/02/16 at 16:30 Furosemide 20 mg 20 mg DAILY PO Last administered on 11/04/16 08:07; Admin Dose 20 MG; Start 11/03/16 at 09:00 Cefazolin Sodium/ Dextrose 50 ml @ 100 mls/hr Q8H IVPB Last administered on 11:26; Admin Dose 100 MLS/HR; Start 11/03/16 at 20:00; Stop 11/04/16 at 19: 59 Lactated Ringer's (Lr) 1,000 ml @ 100 mls/hr Q10H IV Last administered on 05:11; Admin Dose 100 MLS/HR; Start 11/03/16 at 12:22 Hydromorphone HCl (Dilaudid) 1 mg Q3H PRN IV PAIN Last administered on 14:54; Admin Dose 1 MG; Start 11/03/16 at 18:16 Diazepam (Valium) 5 mg QHS PRN PO Insomnia Last administered on 11/04/16 01:51 ; Admin Dose 5 MG; Start 11/03/16 at 21:00 GISELLE CAST Nov 04, 2016 17:32
[2016-11-04] MEDS: ATORVASTATIN 40 MG TAB PO SCH (20:58)
[2016-11-05] MEDS: HYDROmorphONE 1 MG/ML SYG IV PRN ×8 (04:51→23:12)
[2016-11-05] MEDS: LACTATED RINGER'S 1,000 ML IV SCH ×2 (04:51→14:02)
[2016-11-05 05:50] LABS: ADD SCAN DIFF NO
[2016-11-05 05:54] LABS: BASOPHILS % 0.3 % (0.0-2.0); EOSINOPHILS # 0.6 10^3/ul (0.0-0.5); EOSINOPHILS % 8.1 % (0.0-7.0); HEMATOCRIT 32.2 % (37.0-47.0); HEMOGLOBIN 10.5 g/dl (12.0-16.0); LYMPHOCYTES # 1.6 10^3/ul (0.8-2.9); LYMPHOCYTES % 19.9 % (15.0-51.0); MEAN CORPUSCULAR HEMOGLOBIN 31.3 pg (29.0-33.0); MEAN CORPUSCULAR HGB CONC 32.6 g/dl (32.0-37.0); MEAN CORPUSCULAR VOLUME 96.1 fl (82.0-101.0); MEAN PLATELET VOLUME 9.3 fl (7.4-10.4); MONOCYTE # 0.9 10^3/ul (0.3-0.9); MONOCYTES % 10.8 % (0.0-11.0); NEUTROPHIL # 4.8 10^3/ul (1.6-7.5); NEUTROPHILS % 60.5 % (39.0-77.0); PLATELET COUNT 204 10^3/UL (140-415); RED BLOOD COUNT 3.35 10^6/ul (4.20-5.40); RED CELL DISTRIBUTION WIDTH 12.8 % (11.5-14.5); WHITE BLOOD COUNT 7.9 10^3/ul (4.8-10.8)
[2016-11-05 06:05] LABS: POTASSIUM 3.2 mmol/L (3.5-5.1)
[2016-11-05 06:08] LABS: CREATININE 0.61 mg/dl (0.44-1.00)
[2016-11-05 06:09] LABS: CALCIUM 8.6 mg/dl (8.4-10.2)
[2016-11-05] MEDS: ONDANSETRON 4 MG INJ IV PRN (07:51)
[2016-11-05] MEDS: METOPROLOL (XL) 50 MG TAB PO SCH ×2 (08:00→20:14)
[2016-11-05] MEDS: FUROSEMIDE 20 MG TAB PO SCH (08:00)
[2016-11-05 08:23] VITALS: BP 175/85; RESP 18
--- NOTE | 2016-11-05 18:06 | PN ---
Date/Time of Note Date/Time of Note DATE: 11/05/16 TIME: 18:05 Assessment/Plan VTE Prophylaxis VTE Prophylaxis Intervention: SCD's Lines/Catheters IV Catheter Type (from Nrs): Peripheral IV Urinary Cath still in place: No Assessment/Plan Chief Complaint/Hosp Course ASSESSMENT AND PLAN: - Incarcerated left inguinal hernia. S/p hernia repair. Dr. Vaughan is following patient in general surgery consultation. - Intractable abdominal pain in patient with chronic back pain. Continue Dilaudid p.r.n. for pain and Zofran p.r.n. for nausea. Dr. Orellana is following in pain management consultation. - Diastolic congestive heart failure. Continue Lasix, monitor electrolytes. - Hypertension. Continue metoprolol. Continue Protonix for peptic ulcer disease prophylaxis and Lovenox for deep venous thrombosis prophylaxis. Further recommendations based on clinical course. Plan of care discussed with Dr. Hoffman. Problems: Subjective 24 Hr Interval Summary Free Text/Dictation Patient tolerates diet well, continues to have poor appetite, pain is better controlled. Exam/Review of Systems Vital Signs Vitals Vital Signs Date Time Temp Pulse Resp B/P Pulse Ox O2 Delivery O2 Flow Rate FiO2 11/05/16 08:23 98.3 76 18 175/85 94 11/04/16 20:00 Nasal Cannula 2.0 Intake and Output 11/04/16 11/04/16 11/05/16 15:00 23:00 07:00 Intake Total 50 ml 1800 ml 1600 ml Balance 50 ml 1800 ml 1600 ml Exam PHYSICAL ASSESSMENT: GENERAL: Well-developed, well-nourished fragile elderly female currently is awake, alert. HEENT: Head is atraumatic, normocephalic. Pupils are equal, round, reactive to light and accommodation. Oral mucosa is pink and moist. NECK: Supple. There is no cervical lymphadenopathy, no thyromegaly. CHEST: Lungs clear bilaterally. There is no rhonchi, wheezes, rales noted. CARDIOVASCULAR: Normal S1, S2. No murmurs, gallops, clicks, rubs noted. ABDOMEN: Soft. Status post surgery EXTREMITIES: No edema, clubbing, cyanosis. Pulses equal bilaterally 2+. SKIN: There is no rash, petechiae noted. NEUROLOGIC: Patient is awake, alert and oriented x4. No focal deficits noted. Motor strength 5/5 in all extremities. Results Result Diagram: 11/05/16 0525 11/05/16 0425 Results 24 hrs Laboratory Tests Test 11/05/16 04:25 11/05/16 05:25 Sodium Level 138 Potassium Level 3.2 L Chloride Level 99 Carbon Dioxide Level 27 Anion Gap 15 Blood Urea Nitrogen 10 Creatinine 0.61 Glucose Level 119 Calcium Level 8.6 White Blood Count 7.9 Red Blood Count 3.35 L Hemoglobin 10.5 L Hematocrit 32.2 L Mean Corpuscular Volume 96.1 Mean Corpuscular Hemoglobin 31.3 Mean Corpuscular Hemoglobin Concent 32.6 Red Cell Distribution Width 12.8 Platelet Count 204 Mean Platelet Volume 9.3 Neutrophils % 60.5 Lymphocytes % 19.9 Monocytes % 10.8 Eosinophils % 8.1 H Basophils % 0.3 Nucleated Red Blood Cells % 0.0 Neutrophils # 4.8 Lymphocytes # 1.6 Monocytes # 0.9 Eosinophils # 0.6 H Basophils # 0.0 Nucleated Red Blood Cells # 0.0 Medications Medications Current Medications Atorvastatin Calcium (Lipitor) 40 mg QHS PO Last administered on 11/04/16 20:58 ; Admin Dose 40 MG; Start 11/02/16 at 21:00 Metoprolol Succinate (Toprol Xl) 50 mg BID PO Last administered on 11/05/16 08: 00; Admin Dose 50 MG; Start 11/02/16 at 21:00 Ondansetron HCl (Zofran Inj) 4 mg Q4H PRN IV NAUSEA AND/OR VOMITING Last administered on 11/05/16 07:51; Admin Dose 4 MG; Start 11/02/16 at 16:30 Furosemide 20 mg 20 mg DAILY PO Last administered on 11/05/16 08:00; Admin Dose 20 MG; Start 11/03/16 at 09:00 Lactated Ringer's (Lr) 1,000 ml @ 100 mls/hr Q10H IV Last administered on 14:02; Admin Dose 100 MLS/HR; Start 11/03/16 at 12:22 Hydromorphone HCl (Dilaudid) 1 mg Q3H PRN IV PAIN Last administered on 17:09; Admin Dose 1 MG; Start 11/03/16 at 18:16 Diazepam (Valium) 5 mg QHS PRN PO Insomnia Last administered on 4/6/17at 20:58 ; Admin Dose 5 MG; Start 11/03/16 at 21:00 ALEXIS VAZQUEZ Nov 05, 2016 18:06
[2016-11-05] MEDS ORDERED: POTASSIUM CHLORIDE 30 MEQ in DEXTROSE 5% 250 ML IVPB ONE (18:30)
[2016-11-05 19:56] VITALS: BP 192/91; RESP 16
[2016-11-05] MEDS: ATORVASTATIN 40 MG TAB PO SCH (20:13)
[2016-11-05 20:45] VITALS: BP 167/72; PULSE 72; RESP 16
[2016-11-05 21:45] VITALS: BP 158/74; PULSE 70; RESP 18
[2016-11-05] MEDS: DIAZEPAM 5 MG TAB PO PRN (21:51)
[2016-11-06] VITALS (7 sets, daily range): BP systolic 147–197; BP diastolic 67–92; PULSE 70–76; RESP 18–20
[2016-11-06] MEDS: HYDROmorphONE 1 MG/ML SYG IV PRN ×3 (05:51→11:45)
[2016-11-06 06:10] LABS: ADD SCAN DIFF NO
[2016-11-06 06:39] LABS: CALCIUM 8.2 mg/dl (8.4-10.2); CREATININE 0.54 mg/dl (0.44-1.00); POTASSIUM 3.7 mmol/L (3.5-5.1)
[2016-11-06 07:21] LABS: BASOPHILS % 0.2 % (0.0-2.0); EOSINOPHILS # 0.6 10^3/ul (0.0-0.5); HEMATOCRIT 33.3 % (37.0-47.0); HEMOGLOBIN 10.9 g/dl (12.0-16.0); LYMPHOCYTES # 1.3 10^3/ul (0.8-2.9); LYMPHOCYTES % 15.7 % (15.0-51.0); MEAN CORPUSCULAR HEMOGLOBIN 31.3 pg (29.0-33.0); MEAN CORPUSCULAR HGB CONC 32.7 g/dl (32.0-37.0); MEAN CORPUSCULAR VOLUME 95.7 fl (82.0-101.0); MEAN PLATELET VOLUME 9.4 fl (7.4-10.4); MONOCYTE # 0.8 10^3/ul (0.3-0.9); MONOCYTES % 9.5 % (0.0-11.0); NEUTROPHIL # 5.7 10^3/ul (1.6-7.5); NEUTROPHILS % 67.1 % (39.0-77.0); PLATELET COUNT 215 10^3/UL (140-415); RED BLOOD COUNT 3.48 10^6/ul (4.20-5.40); RED CELL DISTRIBUTION WIDTH 12.9 % (11.5-14.5); WHITE BLOOD COUNT 8.5 10^3/ul (4.8-10.8)
[2016-11-06] MEDS: METOPROLOL (XL) 50 MG TAB PO SCH ×2 (08:15→21:17)
[2016-11-06] MEDS: FUROSEMIDE 20 MG TAB PO SCH (08:16)
[2016-11-06] MEDS ORDERED: ACETAMINOPHEN 325 MG TAB PO PRN (12:00)
[2016-11-06] MEDS ORDERED: DIAZEPAM 5 MG TAB PO PRN (12:00)
[2016-11-06] MEDS ORDERED: HYDROCODONE/APAP (5/325) TAB NGT PRN (12:00)
[2016-11-06] MEDS ORDERED: LOSARTAN 25 MG TAB PO SCH (12:00)
[2016-11-06] MEDS: SENNA/DOCUSATE NA (8.6MG/50MG) TAB PO SCH ×2 (12:00→21:07)
[2016-11-06] MEDS: MULTIVITAMINS THERAPEUTIC TAB PO SCH (12:21)
[2016-11-06] MEDS: LOSARTAN 25 MG TAB PO SCH (12:22)
[2016-11-06] MEDS: HYDROCODONE/APAP (5/325) TAB NGT PRN (12:23)
--- NOTE | 2016-11-06 12:25 | PN ---
DATE: 11/06/2016 SUBJECTIVE: The patient continues to have significant postoperative pain. 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 Patient denies any chest pain, breathing comfortably, no reported fever or chills. Patient tole rating diet well. No reported orthopnea, no reported leg edema. PHYSICAL EXAMINATION: GENERAL: The patient is conscious, awake, alert, fairly oriented. VITAL SIGNS: Temperature 98.7, pulse 70, respirations 18, blood pressure 174/84, O2 saturation 95% on 2 liters nasal cannula. HENT: Conjunctivae and lids are normal. Oropharynx clear. NECK: Supple. No mass, no thyromegaly. CHEST: Fairly clear. No use of accessory muscles. CARDIOVASCULAR: S1, S2 normal. No murmur, gallop, or rub. ABDOMEN: Soft, nondistended. Dressing intact on the left lower abdomen. No bleeding. EXTREMITIES: No leg edema. Pedal pulses palpable. SKIN: Without acute rash or ulcer. NEUROLOGIC: The patient is awake, alert, oriented with no gross focal deficit. LABORATORY DATA: Done this morning, WBC 8.5, hemoglobin 10.9, platelets 215. Sodium 133, potassium 3.7, BUN 8, creatinine 0.5, glucose 133. IMPRESSION: 1. Incarcerated left inguinal hernia status post open repair. 2. Recent history of paraesophageal hernia repair. Patient's Dilaudid dose will be increased to 1. 5 mg q.3h. p.r.n. I will also add oral [place] for breakthrough pain. 3. Hypertension. Will add Cozaar. 4. Hyponatremia. The patient's chest x-ray does not have any congestive heart failure and therefor e we will hold off on Lasix and will optimize blood pressure control. We will also add clonidine fo r p.r.n. basis. 5. Anxiety and depression. We will add Valium on p.r.n. basis and will resume Celexa. 6. Chronic lower back pain. Will add Neurontin which was started at [facility]escent home by pain [facility] physician, Dr. Jackson. Meanwhile, the patient is also being seen by Dr. Odell for pain management during her recent stay at [facility]. Plan of care discussed with the nursing staff. Dictated By: VALENTÍN HODGE/ROSA Conf#: [id number] DID#: [id number]
[2016-11-06] MEDS: HYDROmorphONE 2 MG/ML SYG IV PRN ×3 (14:41→21:04)
[2016-11-06] MEDS: ATORVASTATIN 40 MG TAB PO SCH (21:07)
[2016-11-06] MEDS: GABAPENTIN 300 MG CAP PO SCH (21:07)
[2016-11-06] MEDS: DIAZEPAM 5 MG TAB PO PRN (22:10)
[2016-11-07] MEDS: HYDROmorphONE 2 MG/ML SYG IV PRN ×6 (05:33→23:10)
[2016-11-07 05:36] VITALS: BP 185/83; RESP 16
[2016-11-07] MEDS: ALENDRONATE 70 MG TAB PO SCH (07:30)
[2016-11-07 08:12] VITALS: BP 141/73; RESP 18
[2016-11-07 08:13] VITALS: BP_SYST 107; BP_SYST 141; BP_DIAS 57; BP_DIAS 73; RESP 18; RESP 19
[2016-11-07] MEDS: LOSARTAN 25 MG TAB PO SCH ×2 (09:00→10:22)
[2016-11-07] MEDS: GABAPENTIN 300 MG CAP PO SCH ×3 (09:00→20:02)
[2016-11-07] MEDS: METOPROLOL (XL) 50 MG TAB PO SCH ×3 (09:00→20:03)
[2016-11-07] MEDS: ASPIRIN (EC) 81 MG TAB PO SCH ×2 (09:00→10:21)
[2016-11-07] MEDS: SENNA/DOCUSATE NA (8.6MG/50MG) TAB PO SCH ×2 (09:00→20:02)
[2016-11-07] MEDS: MULTIVITAMINS THERAPEUTIC TAB PO SCH (09:00)
[2016-11-07] MEDS: CITALOPRAM 20 MG TAB PO SCH ×2 (09:00→10:21)
[2016-11-07] MEDS: HYDROCODONE/APAP (5/325) TAB NGT PRN ×2 (11:21→15:14)
[2016-11-07 13:30] VITALS: BP 122/60; PULSE 68; RESP 16
--- NOTE | 2016-11-07 19:04 | PN ---
Date/Time of Note Date/Time of Note DATE: 11/07/16 TIME: 19:03 Assessment/Plan VTE Prophylaxis VTE Prophylaxis Intervention: other Lines/Catheters IV [facility] Type (from [facility]): [place] Urinary Cath still in place: No Assessment/Plan Assessment/Plan 1. Incarcerated left inguinal hernia status post open repair. 2. Recent history of paraesophageal hernia repair. Patient's Dilaudid dose will be increased to 1.5 mg q.3h. p.r.n. I will also add oral [place] for breakthrough pain. 3. Hypertension. Will add Cozaar. 4. Hyponatremia. The patient's chest x-ray does not have any congestive heart failure and therefore we will hold off on Lasix and will optimize blood pressure control. We will also add clonidine for p.r.n. basis. 5. Anxiety and depression. We will add Valium on p.r.n. basis and will resume Celexa. 6. Chronic lower back pain. Will add Neurontin which was started at convalescent home by pain management physician, Dr. Jackson. Meanwhile, the patient is also being seen by Dr. Odell for pain management during her recent stay at [facility]. 7. Pain / edema left hand - XRAY hand - Venous doppler Plan of care discussed with the nursing staff. Subjective 24 Hr Interval Summary Eyes: no complaints ENT: no complaints Respiratory: no complaints Cardiovascular: no complaints Gastrointestinal: no complaints Genitourinary: no complaints Musculoskeletal: no complaints Skin: other Neurologic: no complaints Exam/Review of Systems Vital Signs Vitals Vital Signs Date Time Temp Pulse Resp B/P Pulse Ox O2 Delivery O2 Flow Rate FiO2 11/07/16 13:30 68 16 122/60 96 Nasal Cannula 2.0 11/07/16 08:13 98.6 Intake and Output 11/06/16 11/06/16 11/07/16 15:00 23:00 07:00 Intake Total 700 ml 360 ml Balance 700 ml 360 ml Exam Constitutional: alert, oriented Psych: nl mood/affect Eyes: EOMI, nl conjunctiva ENMT: nl external ears & nose Respiratory: clear to auscultation Cardiovascular: nl pulses Gastrointestinal: nl liver, spleen, soft Musculoskeletal: swelling Extremities: normal pulses Neurological: nl mental status, nl speech Skin: nl turgor Lymph: nontender Results Result Diagram: 11/06/1614 11/06/16513 Medications Medications Current Medications Atorvastatin Calcium (Lipitor) 40 mg QHS PO Last administered on 11/06/16 21:07 ; Admin Dose 40 MG; Start 11/02/16 at 21:00 Metoprolol Succinate (Toprol Xl) 50 mg BID PO Last administered on 11/07/16 10: 22; Admin Dose 50 MG; Start 11/02/16 at 21:00 Ondansetron HCl (Zofran Inj) 4 mg Q4H PRN IV NAUSEA AND/OR VOMITING Last administered on 11/05/16 07:51; Admin Dose 4 MG; Start 11/02/16 at 16:30 Diazepam (Valium) 5 mg QHS PRN PO Insomnia Last administered on 11/06/16 22:10 ; Admin Dose 5 MG; Start 11/03/16 at 21:00 Senna/Docusate Sodium (Senokot-S) 2 tab BID PO Last administered on 11/06/16 21 :07; Admin Dose 2 TAB; Start 11/06/16 at 12:00 Acetaminophen (Tylenol Tab) 650 mg Q6H PRN PO PAIN LEVEL 1-3 OR FEVER; Start at 12:00 Alendronate Sodium (Fosamax) 70 mg Sidhu@0730 PO ; Start 11/07/16 at 07:30 Aspirin (Halfprin) 81 mg DAILY PO Last administered on 11/07/16 10:21; Admin Dose 81 MG; Start 11/07/16 at 09:00 Citalopram Hydrobromide (Celexa) 20 mg DAILY PO Last administered on 11/07/16 10:21; Admin Dose 20 MG; Start 11/07/16 at 09:00 Diazepam (Valium) 5 mg Q6H PRN PO ANXIETY; Start 11/06/16 at 12:00 Gabapentin (Neurontin) 600 mg BID PO Last administered on 11/07/16 10:21; Admin Dose 600 MG; Start 11/06/16 at 21:00 Losartan Potassium (Cozaar) 25 mg DAILY PO Last administered on 11/07/16 10:22 ; Admin Dose 25 MG; Start 11/06/16 at 12:00 Multivitamins Therapeutic (Theragran) 1 tab DAILY PO Last administered on 12:21; Admin Dose 1 TAB; Start 11/06/16 at 12:00 Acetaminophen/ Hydrocodone Bitart ([place] (5/325)) 1 q 4 prn for pain 3-5 2 ... Q4H PRN NGT PAIN LEVEL 4-6 Last administered on 11/07/16 15:14; Admin Dose 2 TAB; Start 11/06/16 at 12:00 Clonidine (Catapres) 0.1 mg Q4H PRN GTB SBP >170 Last administered on 11/07/16 05:36; Admin Dose 0.1 MG; Start 11/06/16 at 12:00 Hydromorphone HCl (Dilaudid) 1.5 mg Q3H PRN IV PAIN Last administered on 16:24; Admin Dose 1.5 MG; Start 11/06/16 at 12:16 GISELLE CAST Nov 07, 2016 19:04
[2016-11-07] MEDS: ATORVASTATIN 40 MG TAB PO SCH (20:02)
[2016-11-07 21:01] VITALS: BP 142/71; RESP 20
[2016-11-08] MEDS: DIAZEPAM 5 MG TAB PO PRN ×2 (00:44→22:21)
[2016-11-08] MEDS: HYDROCODONE/APAP (5/325) TAB NGT PRN ×4 (00:46→19:50)
--- NOTE | 2016-11-08 01:01 | RADRPT ---
PROCEDURE: Ultrasound examination of the left upper extremity veins with Doppler. CLINICAL INDICATION: Pain and swelling. TECHNIQUE: Multiple sonographic images of the left upper extremity veins were performed with tijerina scale and color Doppler. COMPARISON: None. FINDINGS: The left internal jugular, subclavian, axillary, brachial, basilic, radial and ulnar veins demonstra te normal color flow, waveforms and compression. There is no evidence of deep venous thrombosis. Co lia-flow is difficult to obtain within the left brachial vein. IMPRESSION: No evidence of deep venous thrombosis within the left upper extremity veins. .Greg Do MD, MD Date Time Electronically viewed and signed by .Greg Do MD, MD on 11/08/2016 01:00 .T/
[2016-11-08] MEDS: HYDROmorphONE 2 MG/ML SYG IV PRN ×6 (05:22→20:51)
[2016-11-08 07:59] VITALS: BP 138/67; RESP 17
[2016-11-08] MEDS: ASPIRIN (EC) 81 MG TAB PO SCH (08:47)
[2016-11-08] MEDS: METOPROLOL (XL) 50 MG TAB PO SCH ×2 (08:48→20:45)
[2016-11-08] MEDS: MULTIVITAMINS THERAPEUTIC TAB PO SCH (08:48)
[2016-11-08] MEDS: LOSARTAN 25 MG TAB PO SCH (08:48)
[2016-11-08] MEDS: GABAPENTIN 300 MG CAP PO SCH ×2 (08:48→20:44)
[2016-11-08] MEDS: CITALOPRAM 20 MG TAB PO SCH (08:48)
[2016-11-08] MEDS: SENNA/DOCUSATE NA (8.6MG/50MG) TAB PO SCH ×2 (08:48→20:44)
--- NOTE | 2016-11-08 09:09 | RADRPT ---
PROCEDURE: XR Left Hand CLINICAL INDICATION: Pain swelling TECHNIQUE: AP, oblique, and lateral radiographs were submitted. COMPARISON: None FINDINGS: Osseous structures: A 6 mm ossification is seen to project lateral to the greater multangular which likely represents an avulsion fragment. The osseous elements otherwise appear intact. Joint spaces: There is narrowing of the distal interphalangeal joints particularly involving the ind ex and middle fingers and there is narrowing of the first metacarpal carpal joint space and the inte rphalangeal joint space of the thumb with mild spurring compatible with osteoarthritic change. Soft tissues: appear unremarkable. IMPRESSION: 1. A 6 mm osseous fragment projects lateral to the greater multangular suspicious for an avulsion w ith uncertain site of origin but likely off view the greater multangular are base of the first metac arpal. 2. Osteoarthritic changes as described. Physician Karin Date Time Electronically viewed and signed by Physician Karin on 11/08/2016 09:08 /
--- NOTE | 2016-11-08 09:11 | RADRPT ---
PROCEDURE: XR Left Wrist CLINICAL INDICATION: Pain, swelling TECHNIQUE: AP, lateral, and oblique views were submitted. COMPARISON: None FINDINGS: Osseous structures: A 6 mm ossification projects lateral to the greater multangular compatible with an avulsion. The remaining osseous elements appear intact. Joint spaces: There is narrowing of the first metacarpal carpal joint space with mild degenerative s purring. The remaining joint spaces appear unremarkable. Soft tissues: appear unremarkable. IMPRESSION: 1. A 6 mm osseous fragment projects lateral to the greater multangular which probably represents an avulsion fragment. 2. Mild degenerative change seen about the first metacarpal carpal joint space. Physician Karin Date Time Electronically viewed and signed by Physician Karin on 11/08/2016 09:10 /
[2016-11-08] MEDS ORDERED: BETAMET NA PHOS/AC(6 MG/ML) 5ML INJ INJ ONE (19:00)
[2016-11-08] MEDS ORDERED: BUPIVACAINE 0.5%/EPI (SDV) 30 ML INJ INJ ONE (19:00)
[2016-11-08 19:56] VITALS: BP 152/75; RESP 83
--- NOTE | 2016-11-08 20:43 | PN ---
Date/Time of Note Date/Time of Note DATE: 11/08/16 TIME: 20:40 Assessment/Plan Lines/Catheters IV Catheter Type (from Nrsg): Saline Lock Urinary Cath still in place: No Assessment/Plan Assessment/Plan 1. Incarcerated left inguinal hernia status post open repair. 2. Recent history of paraesophageal hernia repair. Patient's Dilaudid dose will be increased to 1.5 mg q.3h. p.r.n. I will also add oral [place] for breakthrough pain. 3. Hypertension. Will add Cozaar. 4. Hyponatremia. The patient's chest x-ray does not have any congestive heart failure and therefore we will hold off on Lasix and will optimize blood pressure control. We will also add clonidine for p.r.n. basis. 5. Anxiety and depression. We will add Valium on p.r.n. basis and will resume Celexa. 6. Chronic lower back pain. Will add Neurontin which was started at [facility] by pain management physician, Dr. Jackson. Meanwhile, the patient is also being seen by Dr. Odell for pain management during her recent stay at [facility]. 7. Pain / edema left hand - XRAY hand- an avulsion fragment. - per dr christine in ortho- plan for steriod injections. - Venous doppler -negattive for DVT Plan of care discussed with the nursing staff. Exam/Review of Systems Vital Signs Vitals Vital Signs Date Time Temp Pulse Resp B/P Pulse Ox O2 Delivery O2 Flow Rate FiO2 11/08/16 09:00 Nasal Cannula 2.0 11/08/16 07:59 98.5 67 17 138/67 94 Intake and Output 11/07/16 11/07/16 11/08/16 15:00 23:00 07:00 Intake Total 960 ml 350 ml Balance 960 ml 350 ml Exam Constitutional: alert, well developed Psych: nl mood/affect Head: atraumatic Eyes: EOMI ENMT: nl external ears & nose Neck: non-tender Cardiovascular: nl pulses Gastrointestinal: non-tender, soft Genitourinary - Female: nl external genitalia Extremities: normal pulses, other (RIGHT HAND- edema/eryhthema) Neurological: nl mental status, nl speech Lymph: nontender Results Result Diagram: 11/06/1651311/06/16513 Medications Medications Current Medications Atorvastatin Calcium (Lipitor) 40 mg QHS PO Last administered on 11/07/16 20:02 ; Admin Dose 40 MG; Start 11/02/16 at 21:00 Metoprolol Succinate (Toprol Xl) 50 mg BID PO Last administered on 11/08/16 08 :48; Admin Dose 50 MG; Start 11/02/16 at 21:00 Ondansetron HCl (Zofran Inj) 4 mg Q4H PRN IV NAUSEA AND/OR VOMITING Last administered on 11/05/16 07:51; Admin Dose 4 MG; Start 11/02/16 at 16:30 Diazepam (Valium) 5 mg QHS PRN PO Insomnia Last administered on 11/08/16 00:44 ; Admin Dose 5 MG; Start 11/03/16 at 21:00 Senna/Docusate Sodium (Senokot-S) 2 tab BID PO Last administered on 11/08/16 08:48; Admin Dose 2 TAB; Start 11/06/16 at 12:00 Acetaminophen (Tylenol Tab) 650 mg Q6H PRN PO PAIN LEVEL 1-3 OR FEVER; Start at 12:00 Alendronate Sodium (Fosamax) 70 mg Sidhu@0730 PO ; Start 11/07/16 at 07:30 Aspirin (Halfprin) 81 mg DAILY PO Last administered on 11/08/16 08:47; Admin Dose 81 MG; Start 11/07/16 at 09:00 Citalopram Hydrobromide (Celexa) 20 mg DAILY PO Last administered on 11/08/16 08:48; Admin Dose 20 MG; Start 11/07/16 at 09:00 Diazepam (Valium) 5 mg Q6H PRN PO ANXIETY; Start 11/06/16 at 12:00 Gabapentin (Neurontin) 600 mg BID PO Last administered on 11/08/16 08:48; Admin Dose 600 MG; Start 11/06/16 at 21:00 Losartan Potassium (Cozaar) 25 mg DAILY PO Last administered on 11/08/16 08:48 ; Admin Dose 25 MG; Start 11/06/16 at 12:00 Multivitamins Therapeutic (Theragran) 1 tab DAILY PO Last administered on 08:48; Admin Dose 1 TAB; Start 11/06/16 at 12:00 Acetaminophen/ Hydrocodone Bitart ([place] (5/325)) 1 q 4 prn for pain 3-5 2 ... Q4H PRN NGT PAIN LEVEL 4-6 Last administered on 11/08/16 19:50; Admin Dose 2 TAB; Start 11/06/16 at 12:00 Clonidine (Catapres) 0.1 mg Q4H PRN GTB SBP >170 Last administered on 11/07/16 05:36; Admin Dose 0.1 MG; Start 11/06/16 at 12:00 Hydromorphone HCl (Dilaudid) 1.5 mg Q3H PRN IV PAIN Last administered on 18:05; Admin Dose 1.5 MG; Start 11/06/16 at 12:16 Procedures Procedures PROCEDURE: XR Left Hand CLINICAL INDICATION: Pain swelling TECHNIQUE: AP, oblique, and lateral radiographs were submitted. COMPARISON: None FINDINGS: Osseous structures: A 6 mm ossification is seen to project lateral to the greater multangular which likely represents an avulsion fragment. The osseous elements otherwise appear intact. Joint spaces: There is narrowing of the distal interphalangeal joints particularly involving the index and middle fingers and there is narrowing of the first metacarpal carpal joint space and the interphalangeal joint space of the thumb with mild spurring compatible with osteoarthritic change. Soft tissues: appear unremarkable. IMPRESSION: 1. A 6 mm osseous fragment projects lateral to the greater multangular suspicious for an avulsion with uncertain site of origin but likely off view the greater multangular are base of the first metacarpal. 2. Osteoarthritic changes as described. GISELLE CAST Nov 08, 2016 20:43
[2016-11-08] MEDS: ATORVASTATIN 40 MG TAB PO SCH (20:44)
[2016-11-09] MEDS: HYDROmorphONE 2 MG/ML SYG IV PRN ×6 (00:08→22:38)
[2016-11-09 07:40] VITALS: BP 160/80; RESP 18
[2016-11-09] MEDS: MULTIVITAMINS THERAPEUTIC TAB PO SCH (09:28)
[2016-11-09] MEDS: SENNA/DOCUSATE NA (8.6MG/50MG) TAB PO SCH ×2 (09:28→20:51)
[2016-11-09] MEDS: ASPIRIN (EC) 81 MG TAB PO SCH (09:28)
[2016-11-09] MEDS: GABAPENTIN 300 MG CAP PO SCH ×2 (09:29→20:51)
[2016-11-09] MEDS: METOPROLOL (XL) 50 MG TAB PO SCH ×2 (09:29→20:52)
[2016-11-09] MEDS: CITALOPRAM 20 MG TAB PO SCH (09:29)
[2016-11-09] MEDS: LOSARTAN 25 MG TAB PO SCH (09:33)
[2016-11-09] MEDS: HYDROCODONE/APAP (5/325) TAB NGT PRN (11:13)
--- NOTE | 2016-11-09 15:57 | CONS ---
DATE OF ADMISSION: 11/02/2016 DATE OF CONSULTATION: 11/08/2016 TYPE OF CONSULTATION: Orthopedic Surgical HISTORY OF PRESENT ILLNESS: The patient is an 81-year-old female who was admitted on 11/02/2016, wh en she came to the emergency room complaining of intractable abdominal pain. Following her admissio n, diagnostic workup revealed that she has an incarcerated left inguinal hernia and she was surgical ly treated with open repair of the incarcerated left inguinal hernia utilizing Ultrapro hernia syste m mesh. Orthopedic surgery was consulted because she was complaining of pain and swelling involving the base of the left index finger which started about 2 days prior to my evaluation. She denies any history of memorable trauma in the immediate past; however, she was not sure whether she had a trauma in th e past or not. PHYSICAL EXAMINATION: My examination revealed an 81-year-old female who obviously has a painful swe lling at the base of the left thumb. Further gentle palpation revealed that her pain and swelling w as localized over the area of metacarpocarpal joint of the left thumb. Even though there was tender ness and painful limit of motion of the joint, there was no evidence of acute pyogenic process such as redness or increased warmth. IMAGING: X-rays of the left hand revealed the presence of degenerative changes involving the metaca rpocarpal joint of the left thumb. There was a bony fragment, probably old eversion fragment judgin g from the rounded margins with the . 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 TREATMENT PLAN: 1. Obtain CT scan to further clarify the pathology. 2. Trial of steroid injection into the metacarpocarpal joint of the left thumb. Dictated By: TOM BURKS/ROSA Conf#: [id number] DID#: [id number]
--- NOTE | 2016-11-09 15:58 | PN ---
Date/Time of Note Date/Time of Note DATE: 11/09/16 TIME: 15:57 Assessment/Plan VTE Prophylaxis VTE Prophylaxis Intervention: SCD's Lines/Catheters IV [facility] (from [facility] Saline Lock Urinary Cath still in place: No Assessment/Plan Chief Complaint/Hosp Course [facility] Problems: Assessment/Plan doing well d/c when other issues have been resolved Subjective 24 Hr Interval Summary Free Text/Dictation Left inguinal hernia no issues, has some other orthopedic issues that need to be addressed Exam/Review of Systems Vital Signs Vitals Vital Signs Date Time Temp Pulse Resp B/P Pulse Ox O2 Delivery O2 Flow Rate FiO2 11/09/16 07:40 98.0 66 18 160/80 98 11/08/16 20:00 Nasal Cannula 2.0 Intake and Output 11/08/16 11/08/16 11/09/16 15:00 23:00 07:00 Intake Total 970 ml 300 ml Balance 970 ml 300 ml Exam clean dry intact Results Result Diagram: 11/06/16 0514 11/06/16 0514 Medications Medications Current Medications Atorvastatin Calcium (Lipitor) 40 mg QHS PO Last administered on 11/08/16 20: 44; Admin Dose 40 MG; Start 11/02/16 at 21:00 Metoprolol Succinate (Toprol Xl) 50 mg BID PO Last administered on 11/09/16 09 :29; Admin Dose 50 MG; Start 11/02/16 at 21:00 Ondansetron HCl (Zofran Inj) 4 mg Q4H PRN IV NAUSEA AND/OR VOMITING Last administered on 11/05/16 07:51; Admin Dose 4 MG; Start 11/02/16 at 16:30 Diazepam (Valium) 5 mg QHS PRN PO Insomnia Last administered on 11/08/16 22:21 ; Admin Dose 5 MG; Start 11/03/16 at 21:00 Senna/Docusate Sodium (Senokot-S) 2 tab BID PO Last administered on 11/09/16 09:28; Admin Dose 2 TAB; Start 11/06/16 at 12:00 Acetaminophen (Tylenol Tab) 650 mg Q6H PRN PO PAIN LEVEL 1-3 OR FEVER; Start at 12:00 Alendronate Sodium (Fosamax) 70 mg Sidhu@0730 PO ; Start 11/07/16 at 07:30 Aspirin (Halfprin) 81 mg DAILY PO Last administered on 11/09/16 09:28; Admin Dose 81 MG; Start 11/07/16 at 09:00 Citalopram Hydrobromide (Celexa) 20 mg DAILY PO Last administered on 11/09/16 09:29; Admin Dose 20 MG; Start 11/07/16 at 09:00 Diazepam (Valium) 5 mg Q6H PRN PO ANXIETY; Start 11/06/16 at 12:00 Gabapentin (Neurontin) 600 mg BID PO Last administered on 11/09/16 09:29; Admin Dose 600 MG; Start 11/06/16 at 21:00 Losartan Potassium (Cozaar) 25 mg DAILY PO Last administered on 11/09/16 09:33 ; Admin Dose 25 MG; Start 11/06/16 at 12:00 Multivitamins Therapeutic (Theragran) 1 tab DAILY PO Last administered on 09:28; Admin Dose 1 TAB; Start 11/06/16 at 12:00 Acetaminophen/ Hydrocodone Bitart ([place] (5/325)) 1 q 4 prn for pain 3-5 2 ... Q4H PRN NGT PAIN LEVEL 4-6 Last administered on 11/09/16 11:13; Admin Dose 2 TAB; Start 11/06/16 at 12:00 Clonidine (Catapres) 0.1 mg Q4H PRN GTB SBP >170 Last administered on 11/07/16 05:36; Admin Dose 0.1 MG; Start 11/06/16 at 12:00 Hydromorphone HCl (Dilaudid) 1.5 mg Q3H PRN IV PAIN Last administered on 12:34; Admin Dose 1.5 MG; Start 11/06/16 at 12:16 Aquiles LEE Nov 09, 2016 15:58
--- NOTE | 2016-11-09 16:12 | PN ---
DATE: 11/09/2016 CT scan of the left hand was reviewed again. There were obvious degenerative changes involving the metacarpal carpal joint of the left thumb. The visible small bony fragment seems to be an old melody ion fragment. Her metacarpal carpal joint of the left thumb was injected with Celestone and Marcaine. She can be discharged at any time from [facility]o point. Dictated By: TOM BURKS/ROSA Conf#: [id number] DID#: [id number]
--- NOTE | 2016-11-09 16:35 | RADRPT ---
PROCEDURE: CT of the left hand without contrast CLINICAL INDICATION: Pain. Attention of metacarpal joint of the left thumb. TECHNIQUE: CT of the left hand is performed from the radiocarpal joint through the distal interpha langeal joints at 1.25 mm sections without contrast media. Coronal and sagittal reformatted images are submitted. CTDI = 8.36 mGy; DLP = 123.27 mGy-cm COMPARISON: Wrist x-ray 11/07/2016 FINDINGS: Osseous structures: Generalized demineralization is unable to exclude osteopenia or osteoporosis. Corresponding to the x-ray findings is a well corticated ossific density with smooth margins and est imated at 6 x 4 x 4 mm immediately lateral to the trapezium. An additional are well defined lucency involving the lateral metacarpal base of the thumb is potentially the bone donor site but the findi ngs have a chronic appearance and likely the sequela of remote injury. Differential diagnostic poss ibility is an accessory ossicle, os radiale externum. Moderate degenerative narrowing and sclerosis of the first carpometacarpal joint is present with degenerative subcortical cysts in the and trapez ium. The metacarpal phalangeal joint of the thumb is unremarkable, the sesamoid bones at the metaca rpal head intact. Moderate degenerative narrowing of the interphalangeal joint of the thumb is noted . The visualized proximal carpal row appears intact as do the remaining distal carpal row bones other than the trapezium. The second through fifth metacarpals, proximal and middle phalanges of th e fingers are grossly normal with mild osteoarthrosis of the proximal and distal interphalangeal vita nts of the fingers, most notably the distal interphalangeal joint of the index finger Soft tissues: The no focal or diffuse soft tissue abnormality is demonstrated. The intrinsic muscu lature of the hand is grossly normal and there is no obvious tendinous or ligament disruption. RPTAT:HJJR IMPRESSION: 1. The abnormality seen on the wrist x-ray 11/07/2016 is believed to be the sequela of remote injury , the well defined 6 x 4 x 4 mm ossific structure lateral to the trapezium potentially arising from the well defined lucent area in the first metacarpal base. No acute osseous abnormality of the left hand is demonstrated. 2. Differential diagnostic possibilities include an accessory ossicle, os radiale externum, and a lo ose body as a result of first carpometacarpal joint osteoarthrosis. 3. Osteoarthrosis involving the proximal and distal interphalangeal joints of the fingers most prono unced in the distal interphalangeal joint of the left index finger. Tapan Robles Physician Date Time Electronically viewed and signed by Tapan Robles Physician on 11/09/2016 16:35 JR/
[2016-11-09 19:55] VITALS: BP 151/76; RESP 18
[2016-11-09] MEDS: ATORVASTATIN 40 MG TAB PO SCH (20:51)
--- NOTE | 2016-11-09 21:31 | PN ---
Date/Time of Note Date/Time of Note DATE: 11/09/16 TIME: 21:29 Assessment/Plan VTE Prophylaxis VTE Prophylaxis Intervention: other Lines/Catheters IV Catheter Type (from Nrs): Saline Lock Urinary Cath still in place: No Assessment/Plan Assessment/Plan 1. Incarcerated left inguinal hernia status post open repair. 2. Recent history of paraesophageal hernia repair. Patient's Dilaudid dose will be increased to 1.5 mg q.3h. p.r.n. I will also add oral [place] for breakthrough pain. 3. Hypertension. Will add Cozaar. 4. Hyponatremia. The patient's chest x-ray does not have any congestive heart failure and therefore we will hold off on Lasix and will optimize blood pressure control. We will also add clonidine for p.r.n. basis. 5. Anxiety and depression. We will add Valium on p.r.n. basis and will resume Celexa. 6. Chronic lower back pain. Will add Neurontin which was started at [facility]valescent home by pain management physician, Dr. Jackson. Meanwhile, the patient is also being seen by Dr. Odell for pain management during her recent stay at [facility]. 7. Pain / edema left hand - XRAY hand- an avulsion fragment. - per dr christine in ortho- sp steroid injections. - Venous doppler -negattive for DVT Plan of care discussed with the nursing staff. Subjective 24 Hr Interval Summary Eyes: no complaints ENT: no complaints Respiratory: no complaints Cardiovascular: no complaints Gastrointestinal: no complaints Genitourinary: no complaints Musculoskeletal: bone/joint pain Skin: no complaints Neurologic: no complaints Endocrine: no complaints Exam/Review of Systems Vital Signs Vitals Vital Signs Date Time Temp Pulse Resp B/P Pulse Ox O2 Delivery O2 Flow Rate FiO2 11/09/16 19:55 98.0 65 18 151/76 93 11/08/16 20:00 Nasal Cannula 2.0 Intake and Output 11/08/16 11/08/16 11/09/16 15:00 23:00 07:00 Intake Total 970 ml 300 ml Balance 970 ml 300 ml Exam Constitutional: alert, oriented Psych: no complaints Head: atraumatic Eyes: EOMI, PERRL, nl sclera ENMT: nl external ears & nose Neck: non-tender Respiratory: clear to auscultation Cardiovascular: nl pulses Gastrointestinal: non-tender, soft Musculoskeletal: nl extremities to inspection, other (left hand- sp steroid injections. patient feels better.) Extremities: normal pulses Neurological: nl mental status, nl speech Results Result Diagram: 11/06/1651311/06/16513 Medications Medications Current Medications Atorvastatin Calcium (Lipitor) 40 mg QHS PO Last administered on 11/09/16 20: 51; Admin Dose 40 MG; Start 11/02/16 at 21:00 Metoprolol Succinate (Toprol Xl) 50 mg BID PO Last administered on 11/09/16 20 :52; Admin Dose 50 MG; Start 11/02/16 at 21:00 Ondansetron HCl (Zofran Inj) 4 mg Q4H PRN IV NAUSEA AND/OR VOMITING Last administered on 11/05/16 07:51; Admin Dose 4 MG; Start 11/02/16 at 16:30 Diazepam (Valium) 5 mg QHS PRN PO Insomnia Last administered on 11/08/16 22:21 ; Admin Dose 5 MG; Start 11/03/16 at 21:00 Senna/Docusate Sodium (Senokot-S) 2 tab BID PO Last administered on 11/09/16 20:51; Admin Dose 2 TAB; Start 11/06/16 at 12:00 Acetaminophen (Tylenol Tab) 650 mg Q6H PRN PO PAIN LEVEL 1-3 OR FEVER; Start at 12:00 Alendronate Sodium (Fosamax) 70 mg Sidhu@0730 PO ; Start 11/07/16 at 07:30 Aspirin (Halfprin) 81 mg DAILY PO Last administered on 11/09/16 09:28; Admin Dose 81 MG; Start 11/07/16 at 09:00 Citalopram Hydrobromide (Celexa) 20 mg DAILY PO Last administered on 11/09/16 09:29; Admin Dose 20 MG; Start 11/07/16 at 09:00 Diazepam (Valium) 5 mg Q6H PRN PO ANXIETY; Start 11/06/16 at 12:00 Gabapentin (Neurontin) 600 mg BID PO Last administered on 11/09/16 20:51; Admin Dose 600 MG; Start 11/06/16 at 21:00 Losartan Potassium (Cozaar) 25 mg DAILY PO Last administered on 11/09/16 09:33 ; Admin Dose 25 MG; Start 11/06/16 at 12:00 Multivitamins Therapeutic (Theragran) 1 tab DAILY PO Last administered on 09:28; Admin Dose 1 TAB; Start 11/06/16 at 12:00 Acetaminophen/ Hydrocodone Bitart ([place] (5/325)) 1 q 4 prn for pain 3-5 2 ... Q4H PRN NGT PAIN LEVEL 4-6 Last administered on 11/09/16 11:13; Admin Dose 2 TAB; Start 11/06/16 at 12:00 Clonidine (Catapres) 0.1 mg Q4H PRN GTB SBP >170 Last administered on 11/07/16 05:36; Admin Dose 0.1 MG; Start 11/06/16 at 12:00 Hydromorphone HCl (Dilaudid) 1.5 mg Q3H PRN IV PAIN Last administered on 19:27; Admin Dose 1.5 MG; Start 11/06/16 at 12:16 GISELLE CAST Nov 09, 2016 21:30
[2016-11-09] MEDS: DIAZEPAM 5 MG TAB PO PRN (21:35)
[2016-11-10 05:05] LABS: ADD SCAN DIFF NO
[2016-11-10 05:12] LABS: BASOPHILS % 0.2 % (0.0-2.0); HEMATOCRIT 32.2 % (37.0-47.0); HEMOGLOBIN 10.3 g/dl (12.0-16.0); LYMPHOCYTES % 14.5 % (15.0-51.0); MEAN CORPUSCULAR HEMOGLOBIN 31.1 pg (29.0-33.0); MEAN CORPUSCULAR VOLUME 97.3 fl (82.0-101.0); MEAN PLATELET VOLUME 9.4 fl (7.4-10.4); MONOCYTE # 0.3 10^3/ul (0.3-0.9); MONOCYTES % 4.1 % (0.0-11.0); NEUTROPHIL # 5.4 10^3/ul (1.6-7.5); NEUTROPHILS % 80.9 % (39.0-77.0); PLATELET COUNT 241 10^3/UL (140-415); RED BLOOD COUNT 3.31 10^6/ul (4.20-5.40); RED CELL DISTRIBUTION WIDTH 13.3 % (11.5-14.5); WHITE BLOOD COUNT 6.6 10^3/ul (4.8-10.8)
[2016-11-10 05:30] LABS: CALCIUM 8.6 mg/dl (8.4-10.2); CREATININE 0.55 mg/dl (0.44-1.00)
[2016-11-10] MEDS: HYDROmorphONE 2 MG/ML SYG IV PRN ×4 (06:05→18:13)
[2016-11-10 08:36] VITALS: BP 141/65; RESP 20
[2016-11-10] MEDS: HYDROCODONE/APAP (5/325) TAB NGT PRN (08:52)
[2016-11-10] MEDS: GABAPENTIN 300 MG CAP PO SCH (08:52)
[2016-11-10] MEDS: SENNA/DOCUSATE NA (8.6MG/50MG) TAB PO SCH (08:53)
[2016-11-10] MEDS: METOPROLOL (XL) 50 MG TAB PO SCH (08:53)
[2016-11-10] MEDS: LOSARTAN 25 MG TAB PO SCH (08:53)
[2016-11-10] MEDS: CITALOPRAM 20 MG TAB PO SCH (08:53)
[2016-11-10] MEDS: MULTIVITAMINS THERAPEUTIC TAB PO SCH (08:53)
[2016-11-10] MEDS: ASPIRIN (EC) 81 MG TAB PO SCH (08:54)
--- NOTE | 2016-11-10 12:07 | DS ---
Date/Time of Note Date/Time of Note DATE: 11/10/16 TIME: 12:07 Discharge Summary Admission/Discharge Info Admit Date/Time Nov 02, 2016 at 14:11 Discharge Date/Time Hospital Course [facility] Home Meds Reported Medications Potassium Chloride* (Klor-Con*) 20 Meq Tabsr, 20 MEQ PO DAILY, TAB.SA 11/02/16 Protein Supplement (Promod) 946 Ml Liquid, 30 ML PO TID 11/02/16 Sulfasalazine* (Sulfazine*) 500 Mg Tablet, 500 MG PO BID, TAB 11/02/16 Lisinopril* (Lisinopril*) 5 Mg Tablet, 5 MG PO QHS, #30 TAB HOLD IF BP BELOW 110 OR HR BELOW 60 11/02/16 Hydrocodone/Acetaminophen ([place] 5-325 Tablet) 1 Each Tablet, 2 EACH PO Q4 Y for SEVERE PAIN LEVEL 7-10, TAB MAX 6 TABS DAILY 11/02/16 Hydrocodone/Acetaminophen ([place] 5-325 Tablet) 1 Each Tablet, 1 EACH PO Q4 Y for PAIN LEVEL 4-6, TAB MAX 6 TABS DAILY 11/02/16 Multivitamins* (Theragran*) 1 Tab Tab, 1 TAB PO DAILY, TAB 11/02/16 Losartan Potassium* (Losartan Potassium*) 25 Mg Tablet, 25 MG PO DAILY, TAB HOLD IF BP BELOW 110 OR HR BELOW 60 11/02/16 Lidocaine (Lidoderm) 1 Each Adh..patch, 1 EACH TP Q12 APPLY TO SHOULDER 11/02/16 Hydromorphone Hcl* (Dilaudid*) 4 Mg Tablet, 4 MG PO TID Y for PAIN, TAB 11/02/16 Alendronate Sodium* (Fosamax*) 70 Mg Tablet, 70 MG PO Q7D, #4 TAB EVERY Tuesday11/02/16 Gabapentin* (Gabapentin*) 600 Mg Tablet, 600 MG PO BID, #60 TAB 11/02/16 Lidocaine (Lidoderm) 1 Each Adh..patch, 1 EACH TP Q12 APPLY ON MID BACK 11/02/16 Diazepam* (Diazepam*) 5 Mg Tablet, 5 MG PO Q6 Y for ANXIETY, TAB 11/02/16 Clonidine Hcl* (Clonidine Hcl*) 0.1 Mg Tab, 0.1 MG PO Q6 Y for ELEVATED BLOOD PRESSURE, TAB FOR SBP ABOVE 160 11/02/16 Citalopram Hydrobromide* (Celexa*) 20 Mg Tablet, 20 MG PO DAILY, #30 TAB 11/02/16 Aspirin (Low Dose Aspirin) 81 Mg Tablet.dr, 81 MG PO DAILY, #30 TAB 11/02/16 Spironolactone* (Aldactone*) 25 Mg Tablet, 25 MG PO EVERY 7 DAYS, #30 TAB 11/02/16 Acetaminophen* (Acetaminophen*) 650 Mg Tablet, 650 MG PO Q6H Y for PAIN LEVEL 1- 3 OR FEVER, #30 TAB 11/02/16 Metoprolol Succinate* (Toprol XL*) 50 Mg Tab.er.24h, 50 MG PO BID, #30 TAB 10/06/16 Atorvastatin* (Atorvastatin*) 40 Mg Tablet, 40 MG PO QHS, #30 TAB 07/27/16 Furosemide* (Furosemide*) 40 Mg Tablet, 40 MG PO DAILY, TAB 07/27/16 Pending Labs Laboratory Tests Test 11/10/16 04:45 White Blood Count 6.610^3/ul (4.8-10.8) Red Blood Count 3.3110^6/ul (4.20-5.40) Hemoglobin 10.3g/dl (12.0-16.0) Hematocrit 32.2% (37.0-47.0) Mean Corpuscular Volume 97.3fl (82.0-101.0) Mean Corpuscular Hemoglobin 31.1pg (29.0-33.0) Mean Corpuscular Hemoglobin Concent 32.0g/dl (32.0-37.0) Red Cell Distribution Width 13.3% (11.5-14.5) Platelet Count 73245^3/UL (140-415) Mean Platelet Volume 9.4fl (7.4-10.4) Neutrophils % 80.9% (39.0-77.0) Lymphocytes % 14.5% (15.0-51.0) Monocytes % 4.1% (0.0-11.0) Eosinophils % 0.0% (0.0-7.0) Basophils % 0.2% (0.0-2.0) Nucleated Red Blood Cells % 0.0/100WBC (0.0-0.0) Neutrophils # 5.410^3/ul (1.6-7.5) Lymphocytes # 1.010^3/ul (0.8-2.9) Monocytes # 0.310^3/ul (0.3-0.9) Eosinophils # 0.010^3/ul (0.0-0.5) Basophils # 0.010^3/ul (0.0-0.1) Nucleated Red Blood Cells # 0.010^3/ul (0.0-0.0) Sodium Level 135mmol/L (135-144) Potassium Level 4.0mmol/L (3.5-5.1) Chloride Level 101mmol/L (97-110) Carbon Dioxide Level 29mmol/L (21-31) Anion Gap 9 (8-16) Blood Urea Nitrogen 17mg/dl (7-20) Creatinine 0.55mg/dl (0.44-1.00) Glucose Level 199mg/dl (70-220) Calcium Level 8.6mg/dl (8.4-10.2) GISELLE CAST Nov 10, 2016 12:07
--- NOTE | 2016-11-10 12:13 | PDOCDIS ---
Discharge Instructions CONDITION Patient Condition: Stable HOME CARE INSTRUCTIONS: Special Diet: regular ACTIVITY: Activity Restrictions: Slowly Increase Activity Rest between Activity Avoid heavy lifting Do not operate Machinery Do not operate Power Tool Avoid Heavy Housework Bathing Restrictions: Sponge Bath FOLLOW UP/APPOINTMENTS Appointments FU with PMD x [address] Vaughan x 1 week FU with pain management-( pts own doctor) x 1 week Patient verbalized understanding dc instructions. staff/ dr dr. Menard. GISELLE CAST Nov 10, 2016 12:13
[2016-11-10] MEDS ORDERED: CLON-379 GTB (12:17)
[2016-11-10] MEDS ORDERED: HYDR4TAB18 PO (12:17)
[2016-11-10] MEDS ORDERED: SENN-88 PO (12:17)
== END 2016-11-10 18:21 | disposition home health service (06) | DRG 351 ==
LOC: E/R 10:35 → OBSVTOIN 14:11 → PP2 14:11
PROVIDERS: ADMIT Internal Medicine; ATTEND Internal Medicine
PROC: 0YU60JZ Supplement Left Inguinal Region with Synthetic Substitute, Open Approach (ICD-10-PCS; principal; 2016-11-03 18:00)
DX: K40.30 Unilateral inguinal hernia, with obstruction, without gangrene, not specified as recurrent (principal); I50.30 Unspecified diastolic (congestive) heart failure; I11.0 Hypertensive heart disease with heart failure; E87.1 Hypo-osmolality and hyponatremia; Z79.891 Long term (current) use of opiate analgesic; G89.4 Chronic pain syndrome; F41.8 Other specified anxiety disorders; M54.5 Low back pain; M18.12 Unilateral primary osteoarthritis of first carpometacarpal joint, left hand
CPT/HCPCS: 36415; 71010; 73200; 74176; 80048; 80053; 84484; 85025; 85610; 85730; 86850; 86900; 86901; 87081; 93005; 93971; 96374; 96375; 96376; C1781; J0330; J0690; J0702; J1170; J2175; J2405; J2710; J2765; J3010; J3480; J7030; J7070; J7120

== ENCOUNTER 2019-02-14 02:56 | Emergency (ER) | payer MEDICARE, OTHER ==
[~2019-02-14] VITALS: Ht 180.3 cm; Wt 57.3 kg
[~2019-02-14 02:56] MED LIST changes: +ACET-2047 PO; +ALEN70TA5 PO; +ASPI81TA52 PO; +CITA20TA11 PO; +CLON-379 GTB; +CLON-379 PO; +DIAZ5TAB4 PO; +GABA-526 PO; +HYDR-4011 PO; +HYDR4TAB51 PO; +LIDO700A29 TP; +LISI-313 PO; +LOSA25TA12 PO; +METO-319 PO; -METO50TA16 PO; +MULTI PO; +POTA-57 PO; +PROT946L PO; +SENN-205 PO; +SPIR25TA PO; +SULF500T5 PO
[2019-02-14] MEDS ORDERED: ONDANSETRON 4 MG INJ IV STA (02:58)
[2019-02-14] MEDS ORDERED: morphine 4 MG/ML VIAL IV STA (02:58)
[2019-02-14] MEDS ORDERED: SOD CHLORIDE 0.9% 500 ML IV STA (02:58)
[2019-02-14 03:06] VITALS: Ht 180.3 cm; Wt 57.3 kg
[2019-02-14] MEDS ORDERED: OLME1TAB43 PO (04:23)
[2019-02-14] MEDS ORDERED: DOCU-210 PO (04:23)
[2019-02-14] MEDS ORDERED: CYCL1DRO BOTH EYES (04:23)
[2019-02-14] MEDS ORDERED: CITA10TA5 PO (04:23)
[2019-02-14] MEDS ORDERED: HYDR-3980 PO (04:23)
[2019-02-14] MEDS ORDERED: TEMA7.5C PO (04:23)
[2019-02-14] MEDS ORDERED: SULF500T45 PO (04:23)
[2019-02-14] MEDS ORDERED: HYDR4TAB PO (04:23)
[2019-02-14] MEDS ORDERED: GABA300C16 PO (04:23)
[2019-02-14] MEDS ORDERED: FURO20TA3 PO (04:23)
[2019-02-14] MEDS ORDERED: PANT40TA4 (04:23)
[2019-02-14] MEDS ORDERED: TRAM50TA2 PO (04:58)
--- NOTE | 2019-02-14 05:00 | ERD ---
ER Documentation Chief Complaint Chief Complaint JOHNATHON from home,fell asleep while standing,R back pain HPI This is a 33-year-old female brought in from rescue from home that she fell while she got up to eat a candy bar. Denies hitting her head. Denies fevers chills nausea vomiting. Denies any other current complaints. ROS All systems reviewed and are negative except as per history of present illness. Medications Home Meds Active Scripts Tramadol HCl (Tramadol HCl) 50 Mg Tablet, 50 MG PO Q4 PRN for PAIN, #20 TAB Prov:NYDIA ELLER 02/14/19 Sennosides/Docusate Sodium (Senna Plus Tablet) 1 Each Tablet, 2 TAB PO BID for 30 Days, TAB Prov:GISELLE CAST 11/10/16 Reported Medications Docusate Sodium (Col-Rite) 100 Mg Capsule, 100 MG PO DAILY PRN for CONSTIPATION for 30 Days, #60 TAB 02/14/19 Temazepam* (Temazepam*) 7.5 Mg Capsule, 7.5 MG PO HS PRN for INSOMNIA, CAP 02/14/19 Hydromorphone Hcl (Dilaudid) 4 Mg Tab, 4 MG PO BID for 30 Days, #60 TAB 02/14/19 Cyclosporine (RESTASIS) 1 Each Droperette, 1 DROP BOTH EYES Q12, #1 BOX 02/14/19 Citalopram Hydrobromide* (Citalopram Hydrobromide*) 10 Mg Tablet, 10 MG PO DAILY for 30 Days, #30 TAB 02/14/19 Pantoprazole* (Pantoprazole*) 40 Mg Tablet. 02/14/19 Furosemide* (Furosemide*) 20 Mg Tablet, 20 MG PO DAILY for 30 Days, #30 TAB 02/14/19 Gabapentin* (Gabapentin*) 300 Mg Capsule, 300 MG PO TID for 30 Days, #90 02/14/19 Olmesartan/Amlodipin/Hcthiazid (Myiadun-Yqxxgy-Gvqi 40-5-25 mg) 1 Each Tablet, 1 TAB PO DAILY 02/14/19 Sulfasalazine (Azulfidine) 500 Mg Tab, 500 MG PO BID for 30 Days, #60 02/14/19 Hydrocodone/Acetaminophen (Temple 10-325 Tablet) 1 Each Tablet, 1 EACH PO QID for PAIN, TAB 02/14/19 Protein Supplement (Promod) 946 Ml Liquid, 30 ML PO TID 11/02/16 Multivitamins* (Theragran*) 1 Tab Tab, 1 TAB PO DAILY, TAB 11/02/16 Losartan Potassium* (Losartan Potassium*) 25 Mg Tablet, 25 MG PO DAILY, TAB HOLD IF BP BELOW 110 OR HR BELOW 60 11/02/16 Aspirin (Low Dose Aspirin) 81 Mg Tablet.dr, 81 MG PO DAILY, #30 TAB 11/02/16 Metoprolol Succinate* (Toprol XL*) 50 Mg Tab.er.24h, 50 MG PO BID, #30 TAB 10/06/16 Furosemide* (Furosemide*) 40 Mg Tablet, 40 MG PO DAILY, TAB 07/27/16 Discontinued Reported Medications Potassium Chloride* (Klor-Con*) 20 Meq Tabsr, 20 MEQ PO DAILY, TAB.SA 11/02/16 Sulfasalazine* (Sulfazine*) 500 Mg Tablet, 500 MG PO BID, TAB 11/02/16 Lisinopril* (Lisinopril*) 5 Mg Tablet, 5 MG PO QHS, #30 TAB HOLD IF BP BELOW 110 OR HR BELOW 60 11/02/16 Hydrocodone/Acetaminophen (Temple 5-325 Tablet) 1 Each Tablet, 2 EACH PO Q4 PRN for SEVERE PAIN LEVEL 7-10, TAB MAX 6 TABS DAILY 11/02/16 Hydrocodone/Acetaminophen (Temple 5-325 Tablet) 1 Each Tablet, 1 EACH PO Q4 PRN for PAIN LEVEL 4-6, TAB MAX 6 TABS DAILY 11/02/16 Lidocaine (Lidoderm) 1 Each Adh..patch, 1 EACH TP Q12 APPLY TO SHOULDER 11/02/16 Hydromorphone Hcl* (Dilaudid*) 4 Mg Tablet, 4 MG PO TID PRN for PAIN, TAB 11/02/16 Alendronate Sodium* (Fosamax*) 70 Mg Tablet, 70 MG PO Q7D, #4 TAB EVERY Tuesday11/02/16 Gabapentin* (Gabapentin*) 600 Mg Tablet, 600 MG PO BID, #60 TAB 11/02/16 Lidocaine (Lidoderm) 1 Each Adh..patch, 1 EACH TP Q12 APPLY ON MID BACK 11/02/16 Diazepam* (Diazepam*) 5 Mg Tablet, 5 MG PO Q6 PRN for ANXIETY, TAB 4/4/17 Clonidine Hcl* (Clonidine Hcl*) 0.1 Mg Tab, 0.1 MG PO Q6 PRN for ELEVATED BLOOD PRESSURE, TAB FOR SBP ABOVE 160 11/02/16 Citalopram Hydrobromide* (Celexa*) 20 Mg Tablet, 20 MG PO DAILY, #30 TAB 11/02/16 Spironolactone* (Aldactone*) 25 Mg Tablet, 25 MG PO EVERY 7 DAYS, #30 TAB 11/02/16 Acetaminophen* (Acetaminophen*) 650 Mg Tablet, 650 MG PO Q6H PRN for PAIN LEVEL 1-3 OR FEVER, #30 TAB 11/02/16 Atorvastatin* (Atorvastatin*) 40 Mg Tablet, 40 MG PO QHS, #30 TAB 07/27/16 Discontinued Scripts Hydromorphone Hcl* (Dilaudid*) 4 Mg Tablet, 4 MG PO Q6H PRN for PAIN, #30 TAB Prov:GISELLE CAST 11/10/16 Clonidine Hcl* (Clonidine Hcl*) 0.1 Mg Tab, 0.1 MG GTB Q4H PRN for SBP >170 for 30 Days, TAB Prov:GISELLE CAST 11/10/16 Allergies Allergies: Coded Allergies: No Known Allergy (Verified , 11/03/16) PMhx/Soc History of Surgery: Yes (hernia repair, neck surgery, colonoscopy) Anesthesia Reaction: No Hx Neurological Disorder: No Hx Respiratory Disorders: No Hx Cardiac Disorders: Yes (diastolic CHF) Hx Psychiatric Problems: No Hx Miscellaneous Medical Probl: Yes (HTN, dyslipidemia, chronic pain, T4-T5 compression fx in 2013) Hx Alcohol Use: No Hx Substance Use: No Hx Tobacco Use: No Smoking Status: Never smoker Physical Exam Vitals Vital Signs Date Temp Pulse Resp B/P (MAP) Pulse Ox O2 O2 Flow FiO2 Time Delivery Rate 02/14/19 97.4 79 19 124/60 79 03:06 (81) Physical Exam Const: No acute distress Head: Atraumatic Eyes: Normal Conjunctiva ENT: Normal External Ears, Nose and Mouth. Neck: Full range of motion. No meningismus. Resp: Clear to auscultation bilaterally Cardio: Regular rate and rhythm, no murmurs Abd: Soft, non tender, non distended. Normal bowel sounds Skin: No petechiae or rashes Back: No midline or flank tenderness Ext: No cyanosis, or edema Neur: Awake and alert Psych: Normal Mood and Affect Result Diagram: 02/14/192 02/14/19 0312 Results 24 hrs Laboratory Tests Test 02/14/19 03:12 White Blood Count 5.4 10^3/ul Red Blood Count 3.37 10^6/ul Hemoglobin 10.8 g/dl Hematocrit 33.8 % Mean Corpuscular Volume 100.3 fl Mean Corpuscular Hemoglobin 32.0 pg Mean Corpuscular Hemoglobin Concent 32.0 g/dl Red Cell Distribution Width 13.6 % Platelet Count 169 10^3/UL Mean Platelet Volume 8.7 fl Immature Granulocytes % 0.200 % Neutrophils % 49.4 % Lymphocytes % 36.6 % Monocytes % 10.5 % Eosinophils % 2.6 % Basophils % 0.7 % Nucleated Red Blood Cells % 0.0 /100WBC Immature Granulocytes # 0.010 10^3/ul Neutrophils # 2.7 10^3/ul Lymphocytes # 2.0 10^3/ul Monocytes # 0.6 10^3/ul Eosinophils # 0.1 10^3/ul Basophils # 0.0 10^3/ul Nucleated Red Blood Cells # 0.0 10^3/ul Prothrombin Time 11.8 Sec Prothrombin Time Ratio 0.9 INR International Normalized Ratio 0.86 Activated Partial Thromboplast Time 28.6 Sec Sodium Level 141 mmol/L Potassium Level 3.5 mmol/L Chloride Level 104 mmol/L Carbon Dioxide Level 30 mmol/L Anion Gap 7 Blood Urea Nitrogen 24 mg/dl Creatinine 0.90 mg/dl Est Glomerular Filtrat Rate mL/min mL/min Glucose Level 153 mg/dl Calcium Level 9.0 mg/dl Total Bilirubin 0.4 mg/dl Direct Bilirubin 0.00 mg/dl Indirect Bilirubin 0.4 mg/dl Aspartate Amino Transf (AST/SGOT) 27 IU/L Alanine Aminotransferase (ALT/SGPT) 30 IU/L Alkaline Phosphatase 37 IU/L Total Protein 6.6 g/dl Albumin 3.9 g/dl Globulin 2.70 g/dl Albumin/Globulin Ratio 1.44 Lipase 50 U/L Current Medications Medications Dose Sig/Krunal Start Time Status Last (Trade) Ordered Route PRN Stop Time Admin Dose Reason Admin Sodium 500 ml @ Q1H STAT 02/14/19 DC 02/14/19 Chloride 500 mls/hr IV 02:58 03:16 02/14/19 03:57 Morphine 4 mg ONCE STAT 02/14/19 DC 02/14/19 Sulfate IV 02:58 03:16 (morphine) 02/14/19 02:59 Ondansetron 4 mg ONCE STAT 02/14/19 DC 02/14/19 HCl (Zofran IV 02:58 03:16 Inj) 02/14/19 02:59 Procedures/MDM X-ray Hip 2V Interpreted by me: Bones: [No fracture] Joints: [No dislocation] Foreign body: [None] X-ray LS-Spine 3V Interpreted by me: Bones: [No fracture] Joints: [No dislocation] Foreign body: [None] Medical decision making: This 83-year-old female suffered a mechanical fall. At this point is clinically stable for outpatient management. Patient will be discharged home and told to follow-up primary care physician. Departure Diagnosis: Primary Impression: Fall Encounter type: initial encounter Qualified Codes: W19.XXXA - Unspecified fall, initial encounter Condition: Stable Patient Instructions: Fall, Mechanical Referrals: VALENTÍN HOSKINS MD (PCP) NYDIA ELLER Feb 14, 2019 05:00
[2019-02-14 05:11] VITALS: BP 134/69; PULSE 74; RESP 16
== END 2019-02-14 08:27 | disposition home or self-care (01) ==
LOC: E/R 02:56
DX: M54.9 Dorsalgia, unspecified (principal); I50.30 Unspecified diastolic (congestive) heart failure; I11.0 Hypertensive heart disease with heart failure; R94.02 Abnormal brain scan; Z79.82 Long term (current) use of aspirin
CPT/HCPCS: 70450; 72100; 73510; 80053; 83690; 85025; 85610; 85730; J2270; J2405; J7040; 36415; 96374; 96375